=== PATIENT | female | born 1960 | race Caucasian/White ===

== ENCOUNTER → 2016-10-11 | Outpatient (CLI) | payer BC, OTHER ==
[~2016-10-11] MED LIST: CLX20 PO; LMC100 PO; MULT-506 PO; OXYC-57 PO; WARF2TAB PO
== END | disposition home or self-care (01) ==
LOC: C.RDSM 14:27
PROVIDERS: ATTEND Physical Medicine & Rehabilitation Sports Medicine
DX: Z47.1 Aftercare following joint replacement surgery (principal); Z96.652 Presence of left artificial knee joint

== ENCOUNTER → 2017-03-01 | Outpatient (CLI) | payer BC ==
[~2017-03-01] MED LIST changes: +CITA40TA12 PO; +MELO7.5T5 PO; -OXYC-57 PO; -WARF2TAB PO
--- NOTE | 2017-03-01 14:11 | DIAGNOSTIC IMAGING REPORT ---
RIGHT ANKLE MIN 3 VIEWS ROUTINE CLINICAL HISTORY: Right ankle pain following fall. COMPARISON: Right ankle radiographs December 16, 2011 and MRI of the right ankle December 07, 2011. FINDINGS: Alignment of the right ankle is anatomic. There is no acute fracture. A tiny ossicle along the fibular tip is old. Irregularity of the medial malleolus is old. There is mild posterior calcaneal spurring. There is mild ankle soft tissue swelling. IMPRESSION: No acute fracture or dislocation of the right ankle. Electronically signed by: Homero Wilson M.D. 03/01/2017 2:09 PM Dictated Date/Time: 03/01/2017 2:07 PM
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
== END | disposition home or self-care (01) ==
LOC: C.RAD1850 12:45
PROVIDERS: ATTEND Nurse Practitioner Family
DX: S99.911A Unspecified injury of right ankle, initial encounter (principal); M25.571 Pain in right ankle and joints of right foot; W19.XXXA Unspecified fall, initial encounter; R51 Headache

== ENCOUNTER → 2017-03-04 | Outpatient (CLI) | payer BC ==
--- NOTE | 2017-03-04 14:04 | DIAGNOSTIC IMAGING REPORT ---
BILATERAL KNEE RADIOGRAPHS CLINICAL HISTORY: Bilateral knee pain following fall. COMPARISON STUDY: Knee radiographs October 11, 2016. FINDINGS: Right knee: Alignment of the right knee is anatomic. There is no acute fracture. There is a small right knee joint effusion. There is chondrocalcinosis within the menisci. There is minimal lateral compartment joint space narrowing with tricompartmental osteophytosis. 9 mm calcific density projecting over the posterior aspect of the lateral joint space is unchanged. This could reflect a joint body. Left knee: Alignment of the left knee arthroplasty is anatomic. There is no periprosthetic fracture or lucency. There is no left knee joint effusion. IMPRESSION: Right knee: 1. No acute fracture. 2. Small right knee joint effusion. 3. Mild osteophytosis with chondrocalcinosis within the menisci. 4. No change in a 9 mm calcific density along the posterior aspect of the lateral joint space with could reflect a joint body. Left knee: Status post total left knee arthroplasty. No periprosthetic fracture. No left knee joint effusion. Electronically signed by: Homero Wilson M.D. 03/04/2017 2:02 PM Dictated Date/Time: 03/04/2017 1:54 PM
== END | disposition home or self-care (01) ==
LOC: C.RDSM 13:45
PROVIDERS: ATTEND Physician Assistant
DX: M25.561 Pain in right knee (principal); M25.562 Pain in left knee; Z96.653 Presence of artificial knee joint, bilateral; M25.461 Effusion, right knee

== ENCOUNTER → 2017-04-11 | Outpatient (CLI) | payer BC ==
[~2017-04-11] MED LIST changes: -CITA40TA12 PO; -MELO7.5T5 PO
== END | disposition home or self-care (01) ==
LOC: C.RDSM 15:28
PROVIDERS: ATTEND Physical Medicine & Rehabilitation Sports Medicine
DX: M16.12 Unilateral primary osteoarthritis, left hip (principal)

== ENCOUNTER 2017-09-13 04:49 | Inpatient (IN) | payer BC ==
[2017-08-17 09:24] VITALS: BMI 45.0
--- NOTE | 2017-08-17 09:53 | PAT Medication Instructions ---
Service Date Aug 17, 2017. Current Home Medication List Citalopram Hydrobromide (Celexa), 40 MG PO HS Lamotrigine (Lamotrigine), 200 MG PO HS Meloxicam (Mobic), 15 MG PO QAM Multivitamin (Multivitamin), 1 TAB PO QAM Medication Instructions For Your Scheduled Surgery - Check with surgeon for instructions: Meloxicam (Mobic), 15 MG PO QAM - Hold the following medications the morning of surgery: Multivitamin (Multivitamin), 1 TAB PO QAM - Take the following medications as scheduled the night before surgery: Lamotrigine (Lamotrigine), 200 MG PO HS Citalopram Hydrobromide (Celexa), 40 MG PO HS If you have any questions please call us at [phone] or [phone] or [phone]
[2017-08-17 10:29] LABS: BUN/CREATININE RATIO 10.8 (10-20); CALCIUM 9.3 mg/dl (8.5-10.1); CREATININE 1.2 mg/dl (0.60-1.20); POTASSIUM 4.1 mmol/L (3.5-5.1)
[2017-08-17 10:30] LABS: PARTIAL THROMBOPLASTIN RATIO 1.1; PROTHROMBIN TIME (PATIENT) 10.7 SECONDS (9.0-12.0)
[2017-08-17 10:31] LABS: C-REACTIVE PROTEIN 1.28 mg/dl (0-0.29)
--- NOTE | 2017-08-17 10:34 | DIAGNOSTIC IMAGING REPORT ---
CHEST 2 VIEWS ROUTINE HISTORY: Preop. COMPARISON: Chest 07/30/2016. FINDINGS: The lungs are clear. Cardiac silhouette is normal in size. No pleural effusions. No pneumothorax. IMPRESSION: No acute process. Electronically signed by: Tyrell Krueger M.D. 08/17/2017 10:32 AM Dictated Date/Time: 08/17/2017 10:31 AM
[2017-08-17 11:06] LABS: ESTIMATED AVERAGE GLUCOSE 103 mg/dl; HA1C FLAG Normal (Normal)
--- NOTE | 2017-09-12 07:02 | HISTORY & PHYSICAL EXAMINATION ---
DATE OF ADMISSION: 09/13/2017 CHIEF COMPLAINT: Left hip pain. HISTORY OF PRESENT ILLNESS: The patient is a 57-year-old white female who presents for surgical treatment of her left hip. She has a several year history of increasing left hip pain and discomfort that has gotten significantly worse over the past year. She has been seeing Dr. Krishnamurthy for this and he did the left knee replacement on her about a year or so ago. She has been treated with injections, which provided some temporary relief only. No long-term relief. She has had to use a cane to get around. She describes mostly groin pain. She is looking for surgical treatment. The patient has seen Dr. Krishnamurthy in the past. It is unclear to me why she is coming to our clinic now for this exactly. She does state that the more she walks the more she hurts. No numbness or radicular symptoms. PAST MEDICAL HISTORY: Significant for: 1. Depression/bipolar disorder. 2. Elevated cholesterol. 3. Obesity, BMI 45. PAST SURGICAL HISTORY: Include: 1. Left knee arthroscopy. 2. Right knee arthroscopy. 3. Left knee replacement done by Dr. Krishnamurthy in 2015. 4. Hysterectomy in 2007. ALLERGIES: None. CURRENT MEDICATIONS: 1. Lamictal 200 mg a day. 2. Celexa 40 mg a day. 3. Mobic 50 mg. 4. Buspirone 10 mg. 5. Tylenol. SOCIAL HISTORY: A 57-year-old white female. 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 Rare alcohol intake. She does not smoke. FAMILY HISTORY: Negative for heart disease, diabetes, or blood clots. REVIEW OF SYSTEMS: Negative for diabetes. Denies any chest pain, no shortness of breath. She does have depression/bipolar disorder on Lamictal. She has no seizure history. No blood clots. PHYSICAL EXAMINATION: GENERAL: Reveals a pleasant, middle-aged female. She looks to be in pretty good health. HEAD, EYES, EARS, NOSE, AND THROAT EXAMINATION: Benign. NECK: Supple. No lymphadenopathy. LUNGS: Clear to auscultation. HEART: Has a regular rate and rhythm. ABDOMEN: Soft, nontender, nondistended. EXTREMITY EXAMINATION: Grossly neurovascularly intact except as follows: Examination of left leg reveals the patient walks with an antalgic gait. Limps on the left side. Currently not using her cane. Leg lengths clinically appear pretty equal. She does have reproduction of her pain with hip motion and internal rotation. I can internally rotate to neutral at best. External rotation at 25 degrees. Negative straight leg raise. X-RAYS: X-rays of the left hip were reviewed. It shows advanced left hip DJD. She has got near complete loss of joint space. Fairly concentric disease pattern. Osteophytes off the femoral neck. Good bone density. ASSESSMENT: A 57-year-old white female 1 year out from a left knee replacement with Advanced left hip degenerative joint disease. She would like her left hip fixed. PLAN: We will take her to the operating room and do a left total hip replacement. The risks and benefits of this procedure were explained to the patient including but not limited to DVT, PE, , infection, neurological injury, vascular injury, bleeding problem, pain, limited range of motion, stiffness, failure to relieve her symptoms, incomplete relief of symptoms, need for further surgery in the future, fracture, leg length inequality, nerve palsy, need for revision surgery. The patient understands and desires to proceed. Informed consent was obtained.
[~2017-09-13] VITALS: Ht 170.2 cm; Wt 131.5 kg
[2017-09-13] VITALS (18 sets, daily range): BP systolic 113–142; BP diastolic 71–84; PULSE 84–120; TEMP 36.4–38.8; O2SAT 93–98; Ht 170.2 cm; Wt 131.5 kg
[~2017-09-13 04:49] MED LIST changes: +CITA40TA12 PO; -CLX20 PO; +MELO7.5T5 PO
[2017-09-13] MEDS ORDERED: SCOPOLAMINE 1.5 MG TDSY TD SCH (06:00)
[2017-09-13] MEDS ORDERED: LACTATED RINGER'S 1000ML IV SCH (06:00)
[2017-09-13] MEDS ORDERED: TRANEXAMIC ACID INJ 1,000 MG in SYRINGE 0 ML IV SCH (06:00)
[2017-09-13] MEDS ORDERED: LACTATED RINGER'S 1000ML 500 ML IV ONE (06:00)
[2017-09-13] MEDS ORDERED: LACTATED RINGER'S 1000ML 1,000 ML IV SCH (06:00)
[2017-09-13] MEDS ORDERED: GABAPENTIN 300 MG CAP PO SCH (06:00)
[2017-09-13] MEDS ORDERED: ACETAMINOPHEN 500 MG TAB PO SCH (06:00)
[2017-09-13] MEDS ORDERED: FAMOTIDINE 20 MG TAB PO SCH (06:00)
[2017-09-13] MEDS ORDERED: METOCLOPRAMIDE HCL 10 MG TAB PO SCH (06:00)
[2017-09-13] MEDS ORDERED: CEFAZOLIN 3000MG IV PUSH 15 ML IV SCH (06:00)
[2017-09-13] MEDS ORDERED: BACITRACIN 50000 UNIT VIAL ONE (06:28)
[2017-09-13] MEDS ORDERED: BUPIVACAINE/EPINEPHRINE 0.5% MPF 1:200,000 30 ML VIAL ONE (06:28)
[2017-09-13] MEDS ORDERED: BUPIVACAINE 0.5 % 5 MG/1 ML PF 10ML VIAL ONE (06:30)
[2017-09-13] MEDS ORDERED: MIDAZOLAM HCL 1 MG/ML 2ML VIAL ONE (06:40)
[2017-09-13] MEDS ORDERED: MORPHINE SULFATE PF 2MG/2ML SYR ONE (06:40)
--- NOTE | 2017-09-13 06:50 | History & Physical Bridge Note ---
H&P Re-Evaluation Bridge Note: I have examined the patient, reviewed the History & Physical and in the interval since the performance of the History & Physical I have noted the following changes of clinical significance: No changes noted
[2017-09-13] MEDS ORDERED: DiphenhydrAMINE HCL 50 MG/ML VIAL ONE (07:36)
[2017-09-13] MEDS ORDERED: ONDANSETRON INJ 2 MG/ML 2 ML VIAL ONE (07:36)
[2017-09-13] MEDS ORDERED: EpHEDrine SULFATE 50MG/5ML SYR ONE (07:36)
[2017-09-13] MEDS ORDERED: PROPOFOL IV EMULSION 10 MG/ML 20 ML VIAL IV ONE (07:36)
[2017-09-13] MEDS ORDERED: PHENYLEPHRINE 100MCG/ML 5ML SYR ONE (08:32)
--- NOTE | 2017-09-13 08:49 | [facility] Post Operative Brief Note ---
Immediate Operative Summary Operative Date Sep 13, 2017. Pre-Operative Diagnosis Advanced Left Hip Degenerative Joint Disease Post-Operative Diagnosis Advanced Left Hip Degenerative Joint Disease Procedure(s) Performed Left Total Hip Arthroplasty--Uncemented Surgeon Dr. Brar Mechanical Assembly Technician Surgeon(s) SABIHA Olivares Estimated Blood Loss 400 ml Findings Left Hip DJD Fluids (cc crystalloids) 1400 cc Specimens A. Left Femoral Head Drains None Anesthesia Spinal Complication(s) None Disposition Recovery Room / PACU
[2017-09-13] MEDS ORDERED: MAGNESIUM HYDROXIDE SUSP 30 ML UDC PO PRN (09:00)
[2017-09-13] MEDS ORDERED: BISACODYL 10 MG SUPP PR PRN (09:00)
[2017-09-13] MEDS ORDERED: SILVER SULFADIAZINE 1% CR 50 GM JAR EXT PRN (09:00)
[2017-09-13] MEDS ORDERED: MULTIVITAMIN TAB PO SCH (09:00)
[2017-09-13] MEDS ORDERED: ALUMINUM/MAGNESIUM/SIMETH (MAALOX MAX) 30 ML UDC PO PRN (09:00)
--- NOTE | 2017-09-13 09:16 | OPERATIVE REPORT ---
DATE OF OPERATION: 09/13/2017 SURGEON: Dr. Macho Brar. FURNACE WORKER: SABIHA Ac PREOPERATIVE DIAGNOSIS: Left hip degenerative joint disease. POSTOPERATIVE DIAGNOSIS: Same. PROCEDURE PERFORMED: Left uncemented ceramic on highly cross-linked polyethylene total hip arthroplasty. COMPLICATIONS: None. ESTIMATED BLOOD LOSS: 400 mL. FLUID REPLACEMENT: 1400 mL crystalloid fluid replacement. ANESTHESIA: Spinal. DRAINS: None. SPECIMENS: Left femoral head sent for pathology. OPERATIVE INDICATIONS: The patient is a 57-year-old female who has had a several year history of increasing left hip pain and discomfort. She underwent a left knee replacement about a year ago and has done pretty well from that, but has continued to be bothered and limited by left hip pain. X-rays reveal advanced left hip arthritis. She elected to proceed with operative treatment. OPERATIVE FINDINGS: Operative findings revealed advanced left hip DJD. She had grade 4 [id number] disease of the femoral head and acetabulum. Not a lot of osteophytes. Moderate size joint effusion. Minimal synovitis. OPERATIVE IMPLANTS: Operative implants consisted of: 1. Biomet G7 size 52-mm acetabular shell. 2. An apex hole eliminator. 3. A 6.5 cancellous acetabular screws, 1 at 35 mm length and 1 at 25 mm in length. 4. Highly cross-linked polyethylene liner with a 52 mm outer diameter and 32 mm inner diameter. 5. A DePuy size 13.5 small stature AML femoral stem. 6. A +5/32 mm ceramic articular ball. OPERATIVE PROCEDURE: The patient was taken to the operating room, identified and placed on the operating table in the supine position. All contact areas were appropriately padded. IV antibiotics were provided by anesthesia team. A spinal anesthetic had been implemented in the holding area. Grubbs catheter was placed in sterile fashion. The patient was then placed in the right lateral decubitus position. An axillary roll was placed. Stulberg hip positioner was used for positioning. Left hip and leg were then prepped and draped in the usual sterile fashion. A posterolateral approach to the left hip was then performed through a curvilinear incision centered over the greater trochanter. Sharp dissection was carried out through the subcutaneous tissues down to the level of the IT band and gluteal fascia. The IT band and gluteal fascia was incised longitudinally in line with skin incision. The underlying greater trochanteric bursa was excised. The piriformis and external rotators were tagged and taken off the posterior aspect of the hip. Great care was taken throughout the procedure to protect the sciatic nerve at all times. Posterior capsulotomy was then performed leaving a large flap for later repair. It was centrally rotated and dislocated. Femoral neck osteotomy cut was made with the final cut 15 mm above the lesser trochanter. Femoral head was removed and sent for pathology. The femur was retracted anteriorly. Attention was then drawn to the acetabulum. The acetabular labrum was excised. The pulvinar fat was excised. Sequential reaming of the acetabulum was then performed beginning with a size 43 and progressing up to a 51. I did ream just the entrance of the acetabulum with a 52 as we were having trouble getting a cup in. A 52-mm G7 acetabular shell was then placed in about 40 degrees of lateral opening and 20 degrees of anteversion. It was fixed with two 6.5 cancellous acetabular screws. A trial liner was placed. Attention was then drawn to the femur. The proximal femur was entered with a cookie cutter followed by canal finder and lateralizing reamer. Sequential reaming of the femur was then performed beginning with a size 9 and progressing up to a 13. We got excellent chatter at 13. I broached beginning with a size 10.5 small broach and progressing up to 13.5 small. I did not feel I could get the large broach in. We then trialed the hip and the +5 articular ball recreated the leg lengths to be equal. The hip was stable in full extension and external rotation and in flexion and internal rotation to 50+ degrees. We elected to use these implants. The soft tissue tension was just a little bit lax, but I felt that the leg lengths were equal. All trial implants were removed. An apex hole eliminator was placed. A highly cross-linked polyethylene liner was placed. A 13.5 small stature AML femoral stem was placed. I did ream partway down the canal with a 13.5 reamer as it was extremely tight to start out. A +5/32 mm ceramic articular ball was placed. Hip was located and once again found to be stable. The wound was irrigated with copious amounts of pulsatile lavage solution. I did inject locally with 60 mL of 0.5% Marcaine with epinephrine. The posterior capsule and external rotators were repaired through drill holes in the posterior trochanter with #2 Ti-Cron suture. The IT band and gluteal fascia were then closed with #1 PDS suture in running fashion. The subcutaneous tissues were then closed in 2 layers, the deep layer #2 Vicryl suture and the subcutaneous tissues with 2-0 Dexon suture in a buried interrupted fashion. Skin was closed skin kaitlin. Leg was then cleaned and dried and a sterile dressing of Xeroform, 4 x 4's, ABD pad and foam tape was applied. The patient was transferred to the recovery room in stable condition. The patient tolerated the procedure well with no complications. All needle and sponge counts were correct at the end of the operation. I attest to the content of the Intraoperative Record and any orders documented therein. Any exception s are noted below.
[2017-09-13] MEDS ORDERED: NALOXONE HCL INJ 0.08 MG in SYRINGE 1.8 ML IV PRN (09:36)
[2017-09-13] MEDS ORDERED: NALOXONE HCL INJ 1 MG in SODIUM CHLORIDE 0.9% 1000ML 1,000 ML IV PRN (09:36)
[2017-09-13] MEDS ORDERED: SODIUM CHLORIDE 0.9% 1000ML 1,000 ML IV PRN (09:36)
[2017-09-13] MEDS ORDERED: LACTATED RINGER'S 1000ML 500 ML IV PRN (09:36)
--- NOTE | 2017-09-13 09:38 | DIAGNOSTIC IMAGING REPORT ---
AP PELVIS, CROSSTABLE LATERAL LEFT HIP History: Left total hip arthroplasty. Degenerative arthritis. Postop. FINDINGS: The patient is status post a left total hip arthroplasty. The hardware is intact. No fracture or dislocation. Skin kaitlin are in place. IMPRESSION: Left total hip arthroplasty. No evidence for hardware complication. Electronically signed by: Tyrell Krueger M.D. 09/13/2017 9:37 AM Dictated Date/Time: 09/13/2017 9:35 AM
[2017-09-13] MEDS ORDERED: MEPERIDINE HCL 25 MG/ML CARP IV PRN (09:45)
[2017-09-13] MEDS ORDERED: NO NARCOTICS OR SEDATIVES SCH (09:45)
[2017-09-13] MEDS ORDERED: MoRPHine SULFATE 2 MG/ML CARP IV PRN (09:45)
[2017-09-13] MEDS ORDERED: DiphenhydrAMINE HCL 50 MG/ML VIAL IV PRN (09:45)
[2017-09-13] MEDS ORDERED: ATROPINE SULFATE 0.1 MG/ML 5ML SYR IV PRN (09:45)
[2017-09-13] MEDS ORDERED: NALOXONE HCL 0.4 MG/1 ML VIAL/CARP IV PRN (09:45)
[2017-09-13] MEDS ORDERED: ONDANSETRON INJ 2 MG/ML 2 ML VIAL IV PRN (09:45)
[2017-09-13] MEDS ORDERED: NALBUPHINE HCL INJ 10 MG/ML AMP IV PRN (09:45)
[2017-09-13] MEDS ORDERED: MoRPHine SULFATE PF 1 MG/ML 10 ML AMP/VIAL EPI PRN (09:45)
[2017-09-13] MEDS ORDERED: EpHEDrine SULFATE INJ 50 MG/ML AMP IV PRN ×2 (09:45)
[2017-09-13] MEDS ORDERED: KETOROLAC TROMETHAMINE 30 MG/ML VIAL IV. PRN (09:45)
[2017-09-13] MEDS ORDERED: PROMETHAZINE HCL INJ 6.25 MG in SODIUM CHLORIDE 0.9% 50ML 50 ML IV PRN (09:45)
--- NOTE | 2017-09-13 10:06 | Anesthesiology Progress Note ---
Anesthesia Post Op Note Date & Time Sep 13, 2017 at 10:06 Vital Signs Pain Intensity: 0 Vital Signs Past 12 Hours Date Time Temp Pulse Resp B/P (MAP) Pulse Ox O2 Delivery O2 Flow Rate FiO2 09/13/17 09:30 90 16 117/59 97 Nasal Cannula 3 09/13/17 09:15 36.9 88 16 109/62 98 Nasal Cannula 3 09/13/17 09:05 89 16 111/67 98 Nasal Cannula 3 09/13/17 08:55 88 14 118/75 100 Oxymask 3 09/13/17 08:49 36.9 90 16 126/54 100 Oxymask 5 09/13/17 05:38 37.1 84 20 127/76 95 Room Air Notes Mental Status: alert / awake / arousable, participated in evaluation Pt Amnestic to Procedure: Yes Nausea / Vomiting: adequately controlled Pain: adequately controlled Airway Patency, RR, SpO2: stable & adequate BP & HR: stable & adequate Hydration State: stable & adequate Neuraxial Anesthesia: was administered, sensory block is resolving Anesthetic Complications: no major complications apparent
[2017-09-13] MEDS: D5W AND 1/2NSS + 20MEQ KCL 1,000 ML IV SCH ×3 (12:09→23:53)
[2017-09-13] MEDS: PANTOprazole SOD 40 MG TAB PO SCH (13:00)
[2017-09-13] MEDS: FERROUS GLUCONATE 324 MG TAB PO SCH ×2 (13:01→17:37)
[2017-09-13] MEDS: MULTIVITAMIN TAB PO SCH (13:01)
[2017-09-13] MEDS: DOCUSATE SODIUM 100 MG CAP PO SCH ×2 (13:01→21:42)
--- NOTE | 2017-09-13 13:35 | PROGRESS NOTE ---
DATE: 09/13/2017 DATE: 09/13/2017 SUBJECTIVE: A 57-year-old white female postop from a left hip placement. She is doing well. Not having any pain yet. No chest pain or shortness of breath. Not feeling dizzy or lightheaded. OBJECTIVE: VITAL SIGNS: Temperature 36.8. Vital signs stable. PHYSICAL EXAMINATION: GENERAL: Reveals a healthy, pleasant, middle-aged female. I had to wake her when I went into the room this afternoon. LUNGS: Clear to auscultation. HEART: Regular rate and rhythm. ABDOMEN: Soft, nontender, nondistended. EXTREMITY EXAMINATION: Grossly neurovascularly intact except as follows: Examination of the left lower extremity reveals the leg to be well aligned. Let lengths are equal. Hip is located. Dressing is clean, dry and intact. She can dorsiflex and plantarflex her foot appropriately. She is neurologically intact. X-RAYS: X-rays of the left hip from recovery room were reviewed. It shows a left uncemented total hip arthroplasty. Components look to be in good position. No signs of problems. ASSESSMENT: A 57-year-old white female postop from a left total hip replacement, doing well. Her pain is controlled. Hip is located. She is neurologically intact. PLAN: 1. DVT prophylaxis including thigh-high TEDs, SCDs, and aspirin twice a day. 2. PT and OT. Weight bear as tolerated. Left total hip protocol. 3. Pain control. Doing well with current pain regimen. 4. IV antibiotics x24 hours. 5. Disposition: She is planning to be discharged to home with some home health once adequately recovered.
[2017-09-13] MEDS: ACETAMINOPHEN 500 MG TAB PO SCH ×2 (14:04→21:42)
[2017-09-13] MEDS ORDERED: TRANEXAMIC ACID INJ 1,000 MG in SODIUM CHLORIDE 0.9% 100ML 100 ML IV ONE (15:00)
[2017-09-13] MEDS: CEFAZOLIN IV 2,000 MG in SYRINGE 0 ML IV SCH ×2 (16:24→23:52)
[2017-09-13] MEDS: CHECK SCOPOLAMINE PATCH PLACEMENT SCH ×2 (16:25→23:53)
--- NOTE | 2017-09-13 19:52 | Medical Consult ---
Consultation Date of Consultation: Sep 13, 2017. Attending Physician: Macho Brar M.D. History of Present Illness This is a 57 y/o F who underwent left hip replacement this morning for advanced degenerative disease. She was transferred to the floor this morning. She has been tachycardic in the 120's intermittently since the morning and having some diaphoresis. Medicine was consulted this evening for further eval. She denies any chest pain, shortness of breath, calf tenderness. She does admit to sweating Denies any significant cardiac disease. Past Medical/Surgical History Chronic Pain Social History Smoking Status: Never Smoker Drug Use: none Occupation Status: employed Allergies Coded Allergies: Amoxicillin (Verified Allergy, Intermediate, HYPERACTIVITY/DISORIENTATION , 09/13/17) Cat Dander (Verified Allergy, Unknown, hay fever, 09/13/17) Current Inpatient Medications Current Inpatient Medications Medications (Trade) Dose Ordered Sig/Cami Route Start Time Stop Time Status Last Admin Dose Admin Miscellaneous (Remove Transderm-Scop Patch) 1 ea Q72H N/A 09/16/17 06:00 09/16/17 06:01 Miscellaneous Information (Check Scopolamine Patch Placement) 1 ea QS N/A 09/13/17 16:00 09/16/17 05:59 09/13/17 16:25 1 EA Potassium Chloride/Dextrose/ Sod Cl 1,000 ml @ 150 mls/hr Q6H40M IV 09/13/17 10:30 09/14/17 08:48 09/13/17 12:09 150 MLS/HR Ketorolac Tromethamine (Toradol Inj) 30 mg Q6H IV. 09/14/17 08:00 09/16/17 07:59 Oxycodone HCl (Roxicodone Immediate Rel Tab) 1 TABLET FOR PAIN RATING... Q4H PRN PO 09/14/17 07:01 09/28/17 07:00 Acetaminophen (Tylenol Tab) 1,000 mg Q8H PO 09/13/17 14:00 10/13/17 08:59 09/13/17 14:04 1,000 MG Magnesium Hydroxide (Milk Of Magnesia Susp) 30 ml Q6H PRN PO 09/13/17 09:00 10/13/17 08:59 Bisacodyl (Dulcolax Supp) 10 mg DAILY PRN OK 09/13/17 09:00 10/13/17 08:59 Senna (Senokot Tab) 17.2 mg HS PO 09/13/17 21:00 10/13/17 20:59 Docusate Sodium (coLACE CAP) 100 mg BID PO 09/13/17 09:00 10/13/17 08:59 09/13/17 13:01 100 MG Diphenhydramine HCl (Benadryl Cap) 25 mg Q8H PRN PO 09/14/17 07:01 10/14/17 07:00 Diphenhydramine HCl (Benadryl Inj) 25 mg Q8H PRN IV 09/14/17 07:01 10/14/17 07:00 Al Hydrox/Mg Hydrox/Simethicone (Maalox Max Susp) 15 ml Q4H PRN PO 09/13/17 09:00 10/13/17 08:59 Zolpidem Tartrate (Ambien Tab) 5 mg HSZ PRN PO 09/14/17 07:01 10/14/17 07:00 Multivitamins (Multivitamin Tab) 1 tab QAM PO 09/13/17 09:00 10/13/17 08:59 09/13/17 13:01 1 TAB Ondansetron HCl (Zofran Inj) 4 mg Q6H PRN IV 09/14/17 07:01 10/14/17 07:00 Metoclopramide HCl (Reglan Inj) 10 mg Q6H PRN IV 09/14/17 07:01 10/14/17 07:00 Ferrous Gluconate (Ferrous Gluconate Tab) 324 mg TIDM PO 09/13/17 12:30 10/13/17 12:29 09/13/17 17:37 324 MG Pantoprazole Sodium (Protonix Tab) 40 mg QAM PO 09/13/17 09:00 10/13/17 08:59 09/13/17 13:00 40 MG Silver Sulfadiazine (Silvadene 1% Crm 50GM Jar) 1 appln BID PRN EXT 09/13/17 09:00 10/13/17 08:59 Aspirin (Ecotrin Tab) 325 mg BID PO 09/13/17 21:00 10/13/17 20:59 Cefazolin Sodium 2000 mg/Syringe 10 ml @ 2.5 mls/min Q8H IV 09/13/17 16:00 09/14/17 00:03 09/13/17 16:24 2.5 MLS/MIN Tapentadol (Nucynta Er Tab) 50 mg BID PO 09/14/17 09:00 10/14/17 08:59 Citalopram Hydrobromide (celeXA TAB) 40 mg HS PO 09/13/17 21:00 10/13/17 20:59 Lamotrigine (Lamictal Tab) 200 mg HS PO 09/13/17 21:00 10/13/17 20:59 Hydromorphone HCl (Dilaudid Inj) 0.5 mg Q1H PRN IV 09/14/17 07:01 09/28/17 07:00 Naloxone HCl (Narcan Inj) 0.1 mg UD PRN IV 09/13/17 09:45 09/14/17 07:00 Diphenhydramine HCl (Benadryl Inj) 25 mg Q6H PRN IV 09/13/17 09:45 09/14/17 07:00 Nalbuphine HCl (Nubain Inj) 5 mg Q10M PRN IV 09/13/17 09:45 09/14/17 07:00 Naloxone HCl 1 mg/ Sodium Chloride 1,002.5 ml @ 50 mls/hr Q20H3M PRN IV 09/13/17 09:36 09/14/17 07:00 Ondansetron HCl (Zofran Inj) 4 mg Q6H PRN IV 09/13/17 09:45 09/14/17 07:00 Promethazine HCl 6.25 mg/Sodium Chloride 50.25 ml @ 200 mls/hr Q6H PRN IV 09/13/17 09:45 09/14/17 07:00 Ketorolac Tromethamine (Toradol Inj) 30 mg Q6H PRN IV. 09/13/17 09:45 09/14/17 07:00 Meperidine HCl (Demerol Inj) 25 mg Q15M PRN IV 09/13/17 09:45 09/14/17 07:00 Miscellaneous Information (Dc Intraspinal Morphine) 1 ea TODAY@0700 N/A 09/14/17 07:00 09/14/17 07:01 Miscellaneous Information (No Narcotics Or Sedatives) 1 ea UD N/A 09/13/17 09:45 09/14/17 07:00 Naloxone HCl 0.08 mg/Syringe 2 ml @ 1 mls/min Q2M PRN IV 09/13/17 09:36 09/14/17 07:00 Morphine Sulfate (MoRPHine SULFATE INJ) 2 mg Q2H PRN IV 09/13/17 09:45 09/27/17 07:00 Lactated Ringer's 500 ml @ 999 mls/hr Q31M PRN IV 09/13/17 09:36 09/14/17 07:00 Ephedrine Sulfate (EpHEDrine SULFATE INJ) 10 mg Q5M PRN IV 09/13/17 09:45 09/14/17 07:00 Morphine Sulfate (Duramorph Pf Inj) 0.2 mg TODAY PRN EPI 09/13/17 09:45 09/14/17 07:00 Sodium Chloride 1,000 ml @ 15 mls/hr Q24H PRN IV 09/13/17 09:36 09/14/17 07:00 Review of Systems Constitutional: + sweats, No fever, No chills Respiratory: No cough, No sputum, No wheezing, No shortness of breath, No dyspnea on exertion, No dyspnea at rest Cardiovascular: No chest pain Abdomen: No pain, No nausea, No vomiting Musculoskeletal: + joint pain, + swelling, No calf pain Genitourinary - Female: No dysuria, No urinary frequency Physical Exam Date Time Temp Pulse Resp B/P (MAP) Pulse Ox O2 Delivery O2 Flow Rate FiO2 09/13/17 19:10 16 97 09/13/17 17:59 16 97 09/13/17 16:41 16 95 09/13/17 15:43 16 94 09/13/17 15:30 Nasal Cannula 2.0 09/13/17 15:20 36.9 120 18 113/82 (92) 96 Nasal Cannula 2.0 09/13/17 12:45 16 96 09/13/17 12:34 36.8 106 19 119/78 (92) 96 Nasal Cannula 2.0 09/13/17 11:45 16 98 09/13/17 11:39 36.4 102 18 137/77 (97) 98 Nasal Cannula 2.0 09/13/17 10:46 37.0 96 18 142/84 (103) 93 Nasal Cannula 2.0 09/13/17 10:45 16 96 09/13/17 10:12 36.9 95 19 117/71 (86) 97 Room Air 09/13/17 09:45 Nasal Cannula 2.0 09/13/17 09:45 Nasal Cannula 2.0 09/13/17 09:45 36.9 94 16 125/71 (89) 94 Nasal Cannula 2.0 09/13/17 09:45 16 94 09/13/17 09:30 90 16 117/59 97 Nasal Cannula 3 09/13/17 09:15 36.9 88 16 109/62 98 Nasal Cannula 3 09/13/17 09:05 89 16 111/67 98 Nasal Cannula 3 09/13/17 08:55 88 14 118/75 100 Oxymask 3 09/13/17 08:49 36.9 90 16 126/54 100 Oxymask 5 09/13/17 05:38 37.1 84 20 127/76 95 Room Air General Appearance: no apparent distress Eyes: PERRL, EOMI Respiratory/Chest: lungs clear, normal breath sounds, no respiratory distress, no accessory muscle use Cardiovascular: no murmur, + tachycardia Abdomen/GI: normal bowel sounds, non tender, soft Extremities/Musculoskelatal: no calf tenderness, + pedal edema Neurologic/Psych: no motor/sensory deficits, alert, normal mood/affect, oriented x 3 Laboratory Results Last 24 Hours Test 09/13/17 19:35 Assessment & Plan Post Op Tachycardia/diaphoresis- day 0 denied chest pain/shortness of breath Receiving IV fluids Bolus NSS 500 ml, Normotensive D-Dimer elevated (likely from ortho surgery) - CTA negative for PE EKG with Sinus tach, t wave changes in the lateral leads, negative troponin Denies frequent alcohol use - last beer last week. low risk for alc. withdrawal Received 12.5 PO metoprolol. Later received call about temp of 38.8 Ordered blood cultures Patient on Cefazolin Xray and U/A normal. Resident Physician Supervision Note: Pt examined independently. I discussed the case with the resident and agree with the findings and plan as documented in the note. Any exceptions or clarifications are listed here: 57 y/o F post TKA - pt has exhibited tachycardia post-op - denies SOB or CP. She received a single dose of metoprolol prior to evaluation. Initial HR was approx 130 - 105 at time of evaluation. No obvious etiology for tachycardia is present - A CTA ruled out a PE. She has had a fever post-op without apparent focus. OE AAO x 3 S1,2 tachy/reg CTAB NT, ND NO CCE P: Pt will be monitored overnight and provided with IVF. If there is no short- term improvement we may need to consult cardiology. Would caution against B taylor use as she had displayed a fever in which case tachycardia may be compensatory. Post anesthesia effect may also contribute. Her pain is well controlled so unlikely to contribute to her elevated HR. Reg her fever - she is receiving antibiotics - would obtain cultures if recurs. Documented By: Lalo Gallardo
[2017-09-13 20:22] LABS: BASO % 0.3 %; BASO ABS # 0.04 K/uL (0-0.2); COMPLETE YES; EOS % 0.9 %; HEMATOCRIT 35.6 % (37-47); IG% 0.3 %; LYMPH % 14.5 %; LYMPH ABS # 2.15 K/uL (1.2-3.4); MEAN CELL VOLUME 91.5 fL (80-100); MEAN CORPUSCULAR HEMOGLOBIN 30.6 pg (25-34); MEAN CORPUSCULAR HGB CONC 33.4 g/dl (32-36); MEAN PLATELET VOLUME 9.5 fL (7.4-10.4); MONO % 6.1 %; NEUT % 77.9 %; PLATELET COUNT 302 K/uL (130-400); RED BLOOD COUNT 3.89 M/uL (4.2-5.4); WHITE BLOOD COUNT 14.81 K/uL (4.8-10.8)
[2017-09-13 20:37] LABS: BLOOD UREA NITROGEN 13 mg/dl (7-18); BUN/CREATININE RATIO 9.9 (10-20); CALCIUM 8.5 mg/dl (8.5-10.1); CARBON DIOXIDE 28 mmol/L (21-32); CHLORIDE 102 mmol/L (98-107); CREATININE 1.28 mg/dl (0.60-1.20); GLUCOSE 142 mg/dl (70-99); POTASSIUM 4.5 mmol/L (3.5-5.1); SODIUM 136 mmol/L (136-145)
[2017-09-13] MEDS ORDERED: METOPROLOL TARTRATE 1 MG/ML VIAL IV STA (21:20)
--- NOTE | 2017-09-13 21:25 | DIAGNOSTIC IMAGING REPORT ---
BILATERAL LOWER EXTREMITY VENOUS DOPPLER HISTORY: Acute tachycardia with concern for deep venous thrombosis in a postoperative patient post op tachycardia, r/o dvt. [Left hip degenerative joint disease. COMPARISON STUDY: None. FINDINGS: There is normal compressibility, flow, and augmentation within the bilateral lower extremity deep venous systems. IMPRESSION: No sonographic evidence of deep venous thrombosis within the right or left lower extremity. Electronically signed by: Maicol Grace M.D. 09/13/2017 9:23 PM Dictated Date/Time: 09/13/2017 9:22 PM
--- NOTE | 2017-09-13 21:30 | DIAGNOSTIC IMAGING REPORT ---
CHEST ONE VIEW PORTABLE HISTORY: 57 years-old Female tachycardia, post op acute tachycardia in a postoperative patient. COMPARISON: Chest radiographs 08/17/2017 TECHNIQUE: Portable AP view of the chest FINDINGS: Cardiomediastinal and hilar silhouettes are within normal limits. No pneumothorax, pleural effusion, focal airspace consolidation or overt pulmonary edema. The bones of the chest appear grossly intact. Mild degenerative changes of the shoulders. IMPRESSION: No acute process. The above report was generated using voice recognition software. It may contain grammatical, syntax or spelling errors. Electronically signed by: Maicol Grace M.D. 09/13/2017 9:28 PM Dictated Date/Time: 09/13/2017 9:27 PM
[2017-09-13] MEDS: ASPIRIN 325 MG ECTAB PO SCH (21:42)
[2017-09-13] MEDS: SENNA 8.6 MG TAB PO SCH (21:43)
[2017-09-13] MEDS: CITALOPRAM 40 MG TAB PO SCH (21:43)
[2017-09-13] MEDS ORDERED: METOPROLOL TARTRATE 25 MG TAB PO STA (21:45)
[2017-09-13] MEDS ORDERED: OPTIRAY 320 IV PRN (22:45)
--- NOTE | 2017-09-13 22:51 | DIAGNOSTIC IMAGING REPORT ---
(CHEST FOR PE) ANGIO WITH CT DOSE: 677.85 mGy.cm HISTORY: 57 years-old Female acute tachycardia with concern for pulmonary embolus. TECHNIQUE: Multiple CTA images of the chest were obtained after the intravenous administration of 93 ml Optiray 320. Coronal and sagittal MIPS were obtained from the axial data set and were submitted for review. A dose lowering technique was utilized adhering to the principles of ALARA. COMPARISON: Duplex venous Doppler study of same day, chest radiograph of same day. FINDINGS: CTA: Heart is normal in size without pericardial effusion. Thoracic aorta is normal in both course and caliber without aneurysm or dissection. Bovine aortic arch. Imaged great vessels are patent. Mild atherosclerosis. There is suboptimal evaluation of the pulmonary arterial tree secondary to minimal respiratory motion and contrast bolus timing. The lobar, segmental and subsegmental branches are not well evaluated. No central pulmonary embolus identified. CT CHEST: Heterogeneous thyroid without dominant nodule identified. No pathologic adenopathy by CT size criteria. There is no pneumothorax or pleural effusion identified. Minimal subsegmental bibasilar atelectasis. 3 mm pleural-based pulmonary nodule left upper lobe, image 211 series 4 is likely benign. The central airways are patent. No lobar airspace consolidation to suggest pneumonia. Diffuse fatty infiltration of the liver. Layering gallstones are seen within the gallbladder lumen. No CT evidence of acute cholecystitis. No acute amount of the imaged upper abdomen. Small sliding-type hiatal hernia with fluid noted within the mid and distal portions of the esophageal lumen. Soft tissues are unremarkable. Bones appear intact. Multilevel endplate spurring of the spine. IMPRESSION: 1. Limited evaluation of the pulmonary arterial tree as above. No central pulmonary embolus identified. 2. No acute intrathoracic abnormality. No lobar airspace consolidation to suggest pneumonia. 3. Hepatic steatosis. 4. Cholelithiasis. 5. Small sliding-type hiatal hernia. The above report was generated using voice recognition software. It may contain grammatical, syntax or spelling errors. Electronically signed by: Maicol Grace M.D. 09/13/2017 10:49 PM Dictated Date/Time: 09/13/2017 10:42 PM
[2017-09-13 23:03] LABS: URINE APPEARANCE TURBID (CLEAR); URINE BILIRUBIN NEG (NEG); URINE COLOR YELLOW; URINE NITRITE NEG (NEG); URINE SPECIFIC GRAVITY > 1.045 (1.000-1.030); UROBILINOGEN NEG (NEG)
[2017-09-13 23:12] LABS: MANUAL MICROSCOPIC REQUIRED? NO; REVIEW REQ? NO
[2017-09-13] MEDS ORDERED: NURSING VERBAL MED ORDER ONE (23:30)
[2017-09-13] MEDS ORDERED: SODIUM CHLORIDE 0.9% 500ML 500 ML IV SCH (23:45)
[2017-09-14] VITALS (16 sets, daily range): BP systolic 102–161; BP diastolic 67–85; PULSE 85–104; TEMP 36.4–38.1; O2SAT 84–98
[2017-09-14] MEDS ORDERED: NURSING VERBAL MED ORDER SCH (04:45)
[2017-09-14] MEDS ORDERED: ACETAMINOPHEN 325 MG TAB PO ONE (05:00)
[2017-09-14] MEDS: D5W AND 1/2NSS + 20MEQ KCL 1,000 ML IV SCH (05:12)
[2017-09-14] MEDS ORDERED: NURSING VERBAL MED ORDER ONE (07:00)
[2017-09-14] MEDS ORDERED: DC INTRASPINAL MORPHINE SCH (07:00)
[2017-09-14] MEDS ORDERED: OXYCODONE HCL IR 5 MG TAB (IMMEDIATE RELEASE) PO PRN (07:01)
[2017-09-14] MEDS ORDERED: ONDANSETRON INJ 2 MG/ML 2 ML VIAL IV PRN (07:01)
[2017-09-14] MEDS ORDERED: DiphenhydrAMINE HCL 50 MG/ML VIAL IV PRN (07:01)
[2017-09-14] MEDS ORDERED: METOCLOPRAMIDE HCL INJ 5 MG/ML 2 ML VIAL IV PRN (07:01)
[2017-09-14] MEDS ORDERED: ZOLPIDEM TARTRATE 5 MG TAB PO PRN (07:01)
[2017-09-14] MEDS ORDERED: HYDROmorphone INJ 0.5 MG/0.5 ML SYR IV PRN (07:01)
[2017-09-14 07:30] LABS: BASO % 0.1 %; BASO ABS # 0.02 K/uL (0-0.2); COMPLETE YES; EOS % 0.6 %; HEMATOCRIT 31.2 % (37-47); IG% 0.3 %; LYMPH % 11.2 %; LYMPH ABS # 1.56 K/uL (1.2-3.4); MEAN CELL VOLUME 89.7 fL (80-100); MEAN CORPUSCULAR HEMOGLOBIN 30.7 pg (25-34); MEAN CORPUSCULAR HGB CONC 34.3 g/dl (32-36); MEAN PLATELET VOLUME 9.5 fL (7.4-10.4); MONO % 7.6 %; NEUT % 80.2 %; PLATELET COUNT 208 K/uL (130-400); RED BLOOD COUNT 3.48 M/uL (4.2-5.4); WHITE BLOOD COUNT 13.99 K/uL (4.8-10.8)
[2017-09-14] MEDS: KETOROLAC TROMETHAMINE 30 MG/ML VIAL IV. SCH ×3 (07:45→19:49)
[2017-09-14] MEDS: CHECK SCOPOLAMINE PATCH PLACEMENT SCH ×3 (07:46→23:59)
[2017-09-14 08:10] LABS: BUN/CREATININE RATIO 10.5 (10-20); CALCIUM 8.1 mg/dl (8.5-10.1); CREATININE 0.95 mg/dl (0.60-1.20); POTASSIUM 3.7 mmol/L (3.5-5.1)
[2017-09-14] MEDS: PANTOprazole SOD 40 MG TAB PO SCH (08:48)
[2017-09-14] MEDS: TAPENTADOL ER 50 MG TABCR PO SCH ×2 (08:48→20:47)
[2017-09-14] MEDS: DOCUSATE SODIUM 100 MG CAP PO SCH ×2 (08:48→20:46)
[2017-09-14] MEDS: FERROUS GLUCONATE 324 MG TAB PO SCH ×3 (08:49→17:41)
[2017-09-14] MEDS: ASPIRIN 325 MG ECTAB PO SCH ×2 (08:49→20:46)
[2017-09-14] MEDS: MULTIVITAMIN TAB PO SCH (08:49)
--- NOTE | 2017-09-14 08:50 | Family Medicine Progress Note ---
Progress Note Date of Service Sep 14, 2017. Subjective Pt evaluation today including: conversation w/ patient, physical exam, chart review, lab review, review of inpatient medication list Pain: Left hip pain reported PO Intake: Tolerating PO intake Ms. Mendoza reports she feels better today. She states she was diaphoretic overnight, but is not this morning. She denies any localizing symptoms such as headache, chest pain, shortness of breath, abdominal pain, or calf pain. She does report pain over her incision site but states it does not radiate, and it has not worsened from yesterday. She states she is eating and drinking well, and has no flu-like symptoms. Constitutional: No fever, No chills Respiratory: No cough, No sputum, No wheezing, No shortness of breath Cardiovascular: No chest pain Abdomen: No pain, No nausea, No vomiting Musculoskeletal: + joint pain (left hip) All Other Systems: Reviewed and Negative Medications Current Inpatient Medications Medications (Trade) Dose Ordered Sig/Cami Route Start Time Stop Time Status Last Admin Dose Admin Miscellaneous (Remove Transderm-Scop Patch) 1 ea Q72H N/A 09/16/17 06:00 09/16/17 06:01 Miscellaneous Information (Check Scopolamine Patch Placement) 1 ea QS N/A 09/13/17 16:00 09/16/17 05:59 09/14/17 07:46 1 EA Potassium Chloride/Dextrose/ Sod Cl 1,000 ml @ 150 mls/hr Q6H40M IV 09/13/17 10:30 09/14/17 08:48 09/14/17 05:12 150 MLS/HR Ketorolac Tromethamine (Toradol Inj) 30 mg Q6H IV. 09/14/17 08:00 09/16/17 07:59 09/14/17 07:45 30 MG Oxycodone HCl (Roxicodone Immediate Rel Tab) 1 TABLET FOR PAIN RATING... Q4H PRN PO 09/14/17 07:01 09/28/17 07:00 Magnesium Hydroxide (Milk Of Magnesia Susp) 30 ml Q6H PRN PO 09/13/17 09:00 10/13/17 08:59 Bisacodyl (Dulcolax Supp) 10 mg DAILY PRN IA 09/13/17 09:00 10/13/17 08:59 Senna (Senokot Tab) 17.2 mg HS PO 09/13/17 21:00 10/13/17 20:59 09/13/17 21:43 17.2 MG Docusate Sodium (coLACE CAP) 100 mg BID PO 09/13/17 09:00 10/13/17 08:59 09/13/17 21:42 100 MG Diphenhydramine HCl (Benadryl Cap) 25 mg Q8H PRN PO 09/14/17 07:01 10/14/17 07:00 Diphenhydramine HCl (Benadryl Inj) 25 mg Q8H PRN IV 09/14/17 07:01 10/14/17 07:00 Al Hydrox/Mg Hydrox/Simethicone (Maalox Max Susp) 15 ml Q4H PRN PO 09/13/17 09:00 10/13/17 08:59 Zolpidem Tartrate (Ambien Tab) 5 mg HSZ PRN PO 09/14/17 07:01 10/14/17 07:00 Multivitamins (Multivitamin Tab) 1 tab QAM PO 09/13/17 09:00 10/13/17 08:59 09/13/17 13:01 1 TAB Ondansetron HCl (Zofran Inj) 4 mg Q6H PRN IV 09/14/17 07:01 10/14/17 07:00 Metoclopramide HCl (Reglan Inj) 10 mg Q6H PRN IV 09/14/17 07:01 10/14/17 07:00 Ferrous Gluconate (Ferrous Gluconate Tab) 324 mg TIDM PO 09/13/17 12:30 10/13/17 12:29 09/13/17 17:37 324 MG Pantoprazole Sodium (Protonix Tab) 40 mg QAM PO 09/13/17 09:00 10/13/17 08:59 09/13/17 13:00 40 MG Silver Sulfadiazine (Silvadene 1% Crm 50GM Jar) 1 appln BID PRN EXT 09/13/17 09:00 10/13/17 08:59 Aspirin (Ecotrin Tab) 325 mg BID PO 09/13/17 21:00 10/13/17 20:59 09/13/17 21:42 325 MG Tapentadol (Nucynta Er Tab) 50 mg BID PO 09/14/17 09:00 10/14/17 08:59 Citalopram Hydrobromide (celeXA TAB) 40 mg HS PO 09/13/17 21:00 10/13/17 20:59 09/13/17 21:43 40 MG Lamotrigine (Lamictal Tab) 200 mg HS PO 09/13/17 21:00 10/13/17 20:59 09/13/17 21:42 200 MG Hydromorphone HCl (Dilaudid Inj) 0.5 mg Q1H PRN IV 09/14/17 07:01 09/28/17 07:00 Morphine Sulfate (MoRPHine SULFATE INJ) 2 mg Q2H PRN IV 09/13/17 09:45 09/27/17 07:00 Ioversol (Optiray 320) 100 ml UD PRN IV 09/13/17 22:45 09/17/17 22:44 Acetaminophen (Tylenol Tab) 650 mg Q6 PO 09/14/17 12:00 10/14/17 11:59 Objective Vital Signs Date Time Temp Pulse Resp B/P (MAP) Pulse Ox O2 Delivery O2 Flow Rate FiO2 09/14/17 08:00 Room Air 09/14/17 07:35 37.0 85 20 134/75 (94) 98 Nasal Cannula 2.0 09/14/17 07:03 17 84 09/14/17 07:03 37.0 09/14/17 06:10 37.9 09/14/17 05:45 16 98 09/14/17 04:45 16 96 09/14/17 03:45 16 97 09/14/17 03:39 38.1 104 16 161/85 (110) 97 Nasal Cannula 2.0 09/14/17 02:45 16 97 09/14/17 01:45 16 96 09/14/17 01:07 37.3 09/14/17 00:45 16 96 09/14/17 00:05 Nasal Cannula 2.0 09/13/17 23:51 38.7 09/13/17 23:45 16 96 09/13/17 22:59 38.8 114 18 141/84 (103) 95 Nasal Cannula 2.0 09/13/17 22:00 116 137/82 (100) 09/13/17 19:10 16 97 09/13/17 17:59 16 97 09/13/17 16:41 16 95 09/13/17 15:43 16 94 09/13/17 15:30 Nasal Cannula 2.0 09/13/17 15:20 36.9 120 18 113/82 (92) 96 Nasal Cannula 2.0 09/13/17 12:45 16 96 09/13/17 12:34 36.8 106 19 119/78 (92) 96 Nasal Cannula 2.0 09/13/17 11:45 16 98 09/13/17 11:39 36.4 102 18 137/77 (97) 98 Nasal Cannula 2.0 09/13/17 10:46 37.0 96 18 142/84 (103) 93 Nasal Cannula 2.0 09/13/17 10:45 16 96 09/13/17 10:12 36.9 95 19 117/71 (86) 97 Room Air 09/13/17 09:45 Nasal Cannula 2.0 09/13/17 09:45 Nasal Cannula 2.0 09/13/17 09:45 36.9 94 16 125/71 (89) 94 Nasal Cannula 2.0 09/13/17 09:45 16 94 09/13/17 09:30 90 16 117/59 97 Nasal Cannula 3 09/13/17 09:15 36.9 88 16 109/62 98 Nasal Cannula 3 09/13/17 09:05 89 16 111/67 98 Nasal Cannula 3 09/13/17 08:55 88 14 118/75 100 Oxymask 3 09/13/17 08:49 36.9 90 16 126/54 100 Oxymask 5 Physical Exam General Appearance: WD/WN, no apparent distress Eyes: normal inspection, sclerae normal ENT: normal ENT inspection, hearing grossly normal, TMs normal, pharynx normal Respiratory/Chest: chest non-tender, normal breath sounds, no respiratory distress, no accessory muscle use, + decreased breath sounds Cardiovascular: regular rate, rhythm, no edema, no gallop, no JVD, no murmur Abdomen: normal bowel sounds, non tender, soft, no organomegaly, no pulsatile mass Extremities: normal inspection, no pedal edema, no calf tenderness, normal capillary refill, + pertinent finding (left hip w/dressing that is c/d/i) Neurologic/Psychiatric: alert, normal mood/affect, oriented x 3 Laboratory Results Last 24 Hours Test 09/13/17 19:52 09/13/17 22:45 09/14/17 06:47 White Blood Count 14.81 K/uL 13.99 K/uL Red Blood Count 3.89 M/uL 3.48 M/uL Hemoglobin 11.9 g/dL 10.7 g/dL Hematocrit 35.6 % 31.2 % Mean Corpuscular Volume 91.5 fL 89.7 fL Mean Corpuscular Hemoglobin 30.6 pg 30.7 pg Mean Corpuscular Hemoglobin Concent 33.4 g/dl 34.3 g/dl Platelet Count 302 K/uL 208 K/uL Mean Platelet Volume 9.5 fL 9.5 fL Neutrophils (%) (Auto) 77.9 % 80.2 % Lymphocytes (%) (Auto) 14.5 % 11.2 % Monocytes (%) (Auto) 6.1 % 7.6 % Eosinophils (%) (Auto) 0.9 % 0.6 % Basophils (%) (Auto) 0.3 % 0.1 % Neutrophils # (Auto) 11.53 K/uL 11.23 K/uL Lymphocytes # (Auto) 2.15 K/uL 1.56 K/uL Monocytes # (Auto) 0.91 K/uL 1.06 K/uL Eosinophils # (Auto) 0.13 K/uL 0.08 K/uL Basophils # (Auto) 0.04 K/uL 0.02 K/uL RDW Standard Deviation 43.9 fL 43.2 fL RDW Coefficient of Variation 13.3 % 13.2 % Immature Granulocyte % (Auto) 0.3 % 0.3 % Immature Granulocyte # (Auto) 0.05 K/uL 0.04 K/uL D-Dimer 2060 ug/L FEU Sodium Level 136 mmol/L 135 mmol/L Potassium Level 4.5 mmol/L 3.7 mmol/L Chloride Level 102 mmol/L 103 mmol/L Carbon Dioxide Level 28 mmol/L 27 mmol/L Anion Gap 6.0 mmol/L 5.0 mmol/L Blood Urea Nitrogen 13 mg/dl 10 mg/dl Creatinine 1.28 mg/dl 0.95 mg/dl Est Creatinine Clear Calc Drug Dose 70.2 ml/min 94.6 ml/min Estimated GFR () 54.5 78.2 Estimated GFR (Non- 47.0 67.4 BUN/Creatinine Ratio 9.9 10.5 Random Glucose 142 mg/dl 140 mg/dl Calcium Level 8.5 mg/dl 8.1 mg/dl Troponin I < 0.015 ng/ml Urine Color YELLOW Urine Appearance TURBID Urine pH 5.0 Urine Specific [place] > 1.045 Urine Protein NEG Urine Glucose (UA) NEG Urine Ketones NEG Urine Occult Blood NEG Urine Nitrite NEG Urine Bilirubin NEG Urine Urobilinogen NEG Urine Leukocyte Esterase NEG Urine WBC (Auto) 10-30 /hpf Urine RBC (Auto) 0-4 /hpf Urine Hyaline Casts (Auto) 5-10 /lpf Urine Epithelial Cells (Auto) 10-20 /lpf Urine Bacteria (Auto) NEG Assessment and Plan Ms. Mendoza is a 57 year old lady with a past medical history of bipolar disorder, depression, and hypercholesterolemia who became tachycardic, diaphoretic and febrile post-left hip replacement on 09/13 for chronic degenerative disease. Post Op Tachycardia/diaphoresis - post-op day 1 - currently afebrile, and not tachycardic - CTA negative for PE, troponins negative, UA negative, cxr negative, likely not alcohol withdrawal given she seldom drinks - WCC decreased from 14.8 yesterday to 13.9 today - bcx pending - will monitor, but likely post-anesthesia effect given her symptoms were transient and she does not have any localizing symptoms - patient received cefazolin yesterday Depression/Bipolar disorder - continue lamictal and citalopram Code: Full DVT Prophylaxis: SCDs, teds & aspirin BID Disposition: remains on med/surg Thank you for the consult, will continue to follow. Resident Physician Supervision Note: I was present with PGY1 Dr. Crissy Saez during the history and exam. I discussed the case with the resident and agree with the findings and plan as documented in the note. Any exceptions or clarifications are listed here: none. Despite fever/diaphoresis yesterday patient feels well this am with good appetite and no symptoms of infection (denies fever, chills, body aches, dysuria , cough, dyspnea, chest pain). VSS afebrile gen - nad neck - no JVD mouth - MMM heart - RRR lungs - CTA b/l abd - soft, NT, ND, BS+ ext - left hip dressing in place; no peripheral edema; pulses 2+ b/l CBC, BMP reviewed A/P: post-op SIRS - resolving. unclear etiology - post-op inflammatory cascade leading to fever/diaphoresis? no source of infection seen on blood work/cultures, CTA chest, etc. follow temp curve & cultures. EKGs - had 1 inferior lead with flipped T wave but other segments were wnl. I don't believe this was cardiac. Documented By: Chung Ma MD Resident Tracking Resident Involvement: Resident Care Provided Care Provided: Adult Hospital Medicine
--- NOTE | 2017-09-14 08:51 | Clinical Documentation Query ---
CLINICAL DOCUMENTATION QUERY A 57 y/o F who underwent left hip replacement this morning for advanced degenerative disease, with an elevated temperature, WBC, tachycardia and diaphoretic. In your clinical opinion is this patient being managed for: ( ) Sepsis, unspecified organism ( ) Not Agree ( ) Other explanation of clinical findings (Please Explain) ( ) Unable to determine (Please Define) ( ) Need to Discuss SIRS criteria (2 or more of the following): Temp < 96.8*F/36*C or > 100.4*F/38*C Resps > 20 breaths/min Pulse > 90 bpm PaCO2 <32 mmHg WBC > 12K or < 4K or Bands > 10% The medical record reflects the following clinical findings, treatment, and risk factors. Clinical Indicators: WBC 14.81, temp 38.8, pulse 120, diaphoresis Treatment: Blood cultures, Cefazolin IV Risk Factors: S/P surgical event, tachycardia, diaphoretic, elevated WBC, fever Please clarify and document your clinical opinion in the progress notes and discharge summary. Terms such as "probable", "suspected", "likely", "questionable", "possible", or "still to be ruled out" are acceptable. IF IN AGREEMENT, YOU MUST DOCUMENT ABOVE DIAGNOSTIC STATEMENT IN DAILY PROGRESS NOTES AND DISCHARGE SUMMARY. This document is not part of the patient's record. Thank You, Malia Nieves RN [phone]
[2017-09-14] MEDS: ACETAMINOPHEN 325 MG TAB PO SCH ×3 (12:21→23:59)
--- NOTE | 2017-09-14 12:57 | Anesthesiology Progress Note ---
Anesthesia Post Op Note Date & Time Sep 14, 2017 at 12:57 Vital Signs Pain Intensity: 6.0 Vital Signs Past 12 Hours Date Time Temp Pulse Resp B/P (MAP) Pulse Ox O2 Delivery O2 Flow Rate FiO2 09/14/17 12:10 36.4 86 16 102/67 (79) 95 Room Air 09/14/17 08:00 Room Air 09/14/17 07:35 37.0 85 20 134/75 (94) 98 Nasal Cannula 2.0 09/14/17 07:03 17 84 09/14/17 07:03 37.0 09/14/17 06:10 37.9 09/14/17 05:45 16 98 09/14/17 04:45 16 96 09/14/17 03:45 16 97 09/14/17 03:39 38.1 104 16 161/85 (110) 97 Nasal Cannula 2.0 09/14/17 02:45 16 97 09/14/17 01:45 16 96 09/14/17 01:07 37.3 Notes Mental Status: alert / awake / arousable, participated in evaluation Pt Amnestic to Procedure: Yes Nausea / Vomiting: adequately controlled Pain: adequately controlled Airway Patency, RR, SpO2: stable & adequate BP & HR: stable & adequate Hydration State: stable & adequate Neuraxial Anesthesia: sensory block resolved Anesthetic Complications: no major complications apparent
--- NOTE | 2017-09-14 15:17 | PROGRESS NOTE ---
DATE: 09/14/2017 SUBJECTIVE: A 57-year-old female postop day #1 from a left hip replacement. She is doing pretty well. Pain is very well controlled. Denies any chest pain or shortness of breath. Just feels a little bit white gout. OBJECTIVE: VITAL SIGNS: Temperature is 37.3. Vital signs stable. Pulse 92. She had been tachycardic yesterday. GENERAL: Reveals a healthy pleasant, middle-aged female. I had to wake her to go in the room this afternoon. She is lying in bed, looks pretty comfortable. EXTREMITIES: Examination of left hip and leg reveals the dressing to be in place. Leg lengths are equal. Hip is located. She can dorsiflex and plantarflex her foot appropriately. She is neurologically intact. LABORATORY DATA: Hemoglobin 10.7. Hematocrit 31.2. White cell count 13.99. Electrolytes are stable. IMAGING STUDIES: She had an ultrasound of her legs which revealed no signs of DVT. She had a chest CT shows no PE. Chest x-ray is essentially normal. ASSESSMENT: A 57-year-old female postop day #1 from left total hip replacement, doing pretty well. She was fairly tachycardic yesterday, but this seems to have resolved. It could be related to a fever versus just postoperative changes from the surgery. She is not symptomatic at all at this point. Her workup has been negative. PLAN: 1. DVT prophylaxis including thigh-high TEDs, SCDs, and aspirin. 2. PT/OT. She can weightbear as tolerated. Left total hip protocol. 3. Pain control, doing pretty well with current pain regimen. 4. Tachycardia. We have consulted medicine to follow her and manage this. It looks like this is resolving on its own. 5. Disposition: She is planning to be discharged to home with some home health once adequately recovered.
[2017-09-14] MEDS: CITALOPRAM 40 MG TAB PO SCH (20:46)
[2017-09-14] MEDS: SENNA 8.6 MG TAB PO SCH (20:46)
[2017-09-14] MEDS ORDERED: FRRG PO (21:03)
[2017-09-14] MEDS ORDERED: ASPEC325 PO (21:03)
[2017-09-14] MEDS ORDERED: ACET-1047 PO (21:03)
[2017-09-14] MEDS ORDERED: RXC5 PO (21:03)
--- NOTE | 2017-09-14 21:06 | Discharge Instructions ---
Discharge Instructions Date of Service Sep 14, 2017. Admission Reason for Admission: Left Hip Degenerative Joint Disease Discharge Discharge Diagnosis / Problem: Left Hip Replacement Discharge Goals Goal(s): Decrease discomfort, Improve function, Increase independence, Improve disease control, Therapeutic intervention Activity Recommendations Activity Limitations: per Instructions/Follow-up section (Total Hip Precautions ) Weightbearing Status: Right weightbearing . Instructions / Follow-Up Instructions / Follow-Up ACTIVITY RECOMMENDATIONS: Physical Therapy: * Aggressive physical therapy is not usually needed. You will learn to take care of yourself safely and walk. * Follow the "Hip Precautions Instructions." * In some cases, the healthcare social worker at the hospital will arrange to have a therapist come to your house for the first couple of weeks to help you learn these skills. * You need to practice on your own or with the help of a family member as needed. * When you learn these skills, most of the therapy can be done on your own. Home Exercise: * You were shown a series of exercises in the hospital. Do these exercises three to four times each day including the exercises you were shown in physical therapy. Walking: * Get up and walk several times each day. For the first four weeks, try not to stand or walk for more than one hour at a time. If you do stand or walk for more than one hour, you will not hurt anything, but your leg will likely swell. * As you feel comfortable, you may change from the walker or crutches to a cane and then to independent walking. MEDICATIONS: New Medicine: * You will likely be taking one or more of these medicines: 1. Oxycodone - Take, as directed, when you need it, every four to six hours to control your pain. 2. Iron Sulfate - Take three times each day for the month after surgery to help you replace the blood lost during surgery. 3. Aspirin - Thins your blood to lessen the chance of forming a blood clot. * The most common side effects of pain medicine and iron are nausea and constipation. If nausea or constipation is too much of a problem or if you have any questions about your new medicines or doses, call [facility] at [phone]. We will try to help you manage these issues. VERY IMPORTANT TO READ AND REVIEW" Pain: * The immediate post-operative period after hip replacement surgery is often quite painful. * You are given a prescription for pain medicine. You should take it, as directed, when you need it, especially before physical therapy and before going to bed. Pain that interferes with sleep is very common and can last several months. * You will likely need pain medicine for the first two to four weeks. It will not stop all of the pain. The pain will lessen and as you feel better, you may change to milder pain medicine such as Tylenol. * The most common side effects of pain medicine are nausea and constipation, so don't take more than you need. SPECIAL CARE INSTRUCTIONS: TEDs/Elastic Stockings: * The white elastic stockings help limit swelling and prevent blood clots from forming in your legs. The more you wear them, the more they work. * Wear them for six weeks. Prevention of Infection: * Take antibiotics one hour before any dental cleaning, dental work, urological procedure, gastrointestinal procedure or any invasive surgery in order to prevent your new joint from getting infected. * You may get the antibiotics from the doctor performing the procedure or you may call our office at before and we will call in a prescription to the pharmacy of your choice. Things to Watch For: * Drainage from the incision site that occurs more than one week after your surgery. * Severely increased leg pain or swelling. * Increased redness at the incision site. * Fever above 102 degrees Fahrenheit. * Unusual chest pain or shortness of breath. * Unusual pain or burning with urination. Call [facility] at with any of the above problems or if you have any questions about your medicines or recovery. FOLLOW UP VISIT: Make an appointment to see your doctor for approximately two weeks after surgery for a progress check and staple removal by calling the office at . Current Hospital Diet Patient's current hospital diet: Regular Diet Discharge Diet Recommended Diet: Regular Diet Procedures Procedures Performed: Left Total Hip Arthroplasty--Uncemented Pending Studies Studies pending at discharge: no Laboratory Results Hemoglobin A1c Test 08/17/17 09:15 Range/Units Estimated Average Glucose 103 mg/dl Hemoglobin A1c 5.2 4.5-5.6 % Medical Emergencies . Who to Call and When: Medical Emergencies: If at any time you feel your situation is an emergency, please call 911 immediately. . Non-Emergent Contact Non-Emergency issues call your: Surgeon . "Provider Documentation" section prepared by Macho Brar. . VTE Core Measure Inpt VTE Proph given/why not?: Other Anticoagulation, T.E.D. Stockings, SCD's
[2017-09-15] MEDS: KETOROLAC TROMETHAMINE 30 MG/ML VIAL IV. SCH ×2 (02:21→08:00)
[2017-09-15] MEDS: ACETAMINOPHEN 325 MG TAB PO SCH ×2 (06:05→11:45)
[2017-09-15 06:19] VITALS: BP 92/59; PULSE 89; TEMP 36.9; O2SAT 97
[2017-09-15 07:18] LABS: HEMATOCRIT 32.3 % (37-47); MEAN CELL VOLUME 89.7 fL (80-100); MEAN CORPUSCULAR HEMOGLOBIN 30.3 pg (25-34); MEAN CORPUSCULAR HGB CONC 33.7 g/dl (32-36); MEAN PLATELET VOLUME 9.6 fL (7.4-10.4); PLATELET COUNT 216 K/uL (130-400); WHITE BLOOD COUNT 15.13 K/uL (4.8-10.8)
--- NOTE | 2017-09-15 07:37 | PROGRESS NOTE ---
DATE: 09/15/2017 SUBJECTIVE: This is a 57-year-old female postop day 2 from a left total hip replacement. She is doing well. Pain is controlled. Denies any chest pain or shortness of breath. No feeling dizzy or lightheaded. OBJECTIVE: VITAL SIGNS: Temperature is 36.9. Vital signs stable. Heart rate is 89 and back to baseline. GENERAL: Reveals a pleasant, middle-aged female. The patient is sitting up in her bedside chair and looks quite comfortable. LUNGS: Clear to auscultation. HEART: Regular rate and rhythm. ABDOMEN: Soft, nontender, nondistended. EXTREMITIES: Grossly neurovascularly intact except as follows: Examination of left hip and leg reveals the dressing to be clean, dry and intact. Hip is located. She is neurologically intact. LABORATORY DATA: Pending. ASSESSMENT: A 57-year-old white female postop day 2 from left total hip replacement, doing pretty well. She had some intermittent tachycardia, but asymptomatic. It seems to be resolving. Pain is controlled. Hips located. She is neurologically intact. PLAN: 1. DVT prophylaxis including thigh-high TEDs, SCDs, and aspirin twice a day. 2. PT/OT. Weightbearing as tolerated. Left total hip protocol. 3. Pain control, doing well with current pain regimen. 4. Disposition: Plan to discharge to home with some home health.
[2017-09-15 07:43] LABS: BUN/CREATININE RATIO 11.1 (10-20); CALCIUM 8.7 mg/dl (8.5-10.1); CREATININE 0.88 mg/dl (0.60-1.20); POTASSIUM 3.7 mmol/L (3.5-5.1)
[2017-09-15] MEDS: CHECK SCOPOLAMINE PATCH PLACEMENT SCH (08:00)
[2017-09-15 08:30] VITALS: O2SAT 97
[2017-09-15] MEDS: FERROUS GLUCONATE 324 MG TAB PO SCH ×2 (08:30→11:44)
[2017-09-15] MEDS: ASPIRIN 325 MG ECTAB PO SCH (09:00)
[2017-09-15] MEDS: TAPENTADOL ER 50 MG TABCR PO SCH (09:00)
[2017-09-15] MEDS: PANTOprazole SOD 40 MG TAB PO SCH (09:00)
[2017-09-15] MEDS: MULTIVITAMIN TAB PO SCH (09:00)
[2017-09-15] MEDS: DOCUSATE SODIUM 100 MG CAP PO SCH (09:00)
--- NOTE | 2017-09-15 11:18 | Family Medicine Progress Note ---
Progress Note Date of Service Sep 15, 2017. Subjective Pt evaluation today including: conversation w/ patient, physical exam, chart review, lab review, review of inpatient medication list Pain: No pain reported PO Intake: Tolerating PO intake Voiding: no voiding problems Ms. Mendoza reports she feels well today. She denies any more episodes of tachycardia, and diaphoresis. She states her pain is well-controlled. She denies chest pain, n/v, abdominal pain. She has no urinary symptoms, and has been passing flatus, but has not had a bowel movement as yet. Constitutional: No fever, No chills Respiratory: No cough, No sputum, No wheezing, No shortness of breath, No dyspnea on exertion Cardiovascular: No chest pain Abdomen: No pain, No nausea, No vomiting Musculoskeletal: No joint pain, No muscle pain, No calf pain All Other Systems: Reviewed and Negative Medications Current Inpatient Medications Medications (Trade) Dose Ordered Sig/Cami Route Start Time Stop Time Status Last Admin Dose Admin Miscellaneous (Remove Transderm-Scop Patch) 1 ea Q72H N/A 09/16/17 06:00 09/16/17 06:01 Miscellaneous Information (Check Scopolamine Patch Placement) 1 ea QS N/A 09/13/17 16:00 09/16/17 05:59 09/14/17 23:59 1 EA Ketorolac Tromethamine (Toradol Inj) 30 mg Q6H IV. 09/14/17 08:00 09/16/17 07:59 09/15/17 02:21 30 MG Oxycodone HCl (Roxicodone Immediate Rel Tab) 1 TABLET FOR PAIN RATING... Q4H PRN PO 09/14/17 07:01 09/28/17 07:00 09/14/17 08:48 5 MG Magnesium Hydroxide (Milk Of Magnesia Susp) 30 ml Q6H PRN PO 09/13/17 09:00 10/13/17 08:59 Bisacodyl (Dulcolax Supp) 10 mg DAILY PRN CO 09/13/17 09:00 10/13/17 08:59 Senna (Senokot Tab) 17.2 mg HS PO 09/13/17 21:00 10/13/17 20:59 09/14/17 20:46 17.2 MG Docusate Sodium (coLACE CAP) 100 mg BID PO 09/13/17 09:00 10/13/17 08:59 09/14/17 20:46 100 MG Diphenhydramine HCl (Benadryl Cap) 25 mg Q8H PRN PO 09/14/17 07:01 10/14/17 07:00 Diphenhydramine HCl (Benadryl Inj) 25 mg Q8H PRN IV 09/14/17 07:01 10/14/17 07:00 Al Hydrox/Mg Hydrox/Simethicone (Maalox Max Susp) 15 ml Q4H PRN PO 09/13/17 09:00 10/13/17 08:59 Zolpidem Tartrate (Ambien Tab) 5 mg HSZ PRN PO 09/14/17 07:01 10/14/17 07:00 Multivitamins (Multivitamin Tab) 1 tab QAM PO 09/13/17 09:00 10/13/17 08:59 09/14/17 08:49 1 TAB Ondansetron HCl (Zofran Inj) 4 mg Q6H PRN IV 09/14/17 07:01 10/14/17 07:00 Metoclopramide HCl (Reglan Inj) 10 mg Q6H PRN IV 09/14/17 07:01 10/14/17 07:00 Ferrous Gluconate (Ferrous Gluconate Tab) 324 mg TIDM PO 09/13/17 12:30 10/13/17 12:29 09/14/17 17:41 324 MG Pantoprazole Sodium (Protonix Tab) 40 mg QAM PO 09/13/17 09:00 10/13/17 08:59 09/14/17 08:48 40 MG Silver Sulfadiazine (Silvadene 1% Crm 50GM Jar) 1 appln BID PRN EXT 09/13/17 09:00 10/13/17 08:59 Aspirin (Ecotrin Tab) 325 mg BID PO 09/13/17 21:00 10/13/17 20:59 09/14/17 20:46 325 MG Tapentadol (Nucynta Er Tab) 50 mg BID PO 09/14/17 09:00 10/14/17 08:59 09/14/17 20:47 50 MG Citalopram Hydrobromide (celeXA TAB) 40 mg HS PO 09/13/17 21:00 10/13/17 20:59 09/14/17 20:46 40 MG Lamotrigine (Lamictal Tab) 200 mg HS PO 09/13/17 21:00 10/13/17 20:59 09/14/17 20:46 200 MG Hydromorphone HCl (Dilaudid Inj) 0.5 mg Q1H PRN IV 09/14/17 07:01 09/28/17 07:00 Morphine Sulfate (MoRPHine SULFATE INJ) 2 mg Q2H PRN IV 09/13/17 09:45 09/27/17 07:00 09/14/17 12:22 2 MG Ioversol (Optiray 320) 100 ml UD PRN IV 09/13/17 22:45 09/17/17 22:44 Acetaminophen (Tylenol Tab) 650 mg Q6 PO 09/14/17 12:00 10/14/17 11:59 09/15/17 06:05 650 MG Objective Vital Signs Last 24 Hours Test 09/15/17 06:59 White Blood Count 15.13 K/uL Red Blood Count 3.60 M/uL Hemoglobin 10.9 g/dL Hematocrit 32.3 % Mean Corpuscular Volume 89.7 fL Mean Corpuscular Hemoglobin 30.3 pg Mean Corpuscular Hemoglobin Concent 33.7 g/dl RDW Standard Deviation 42.9 fL RDW Coefficient of Variation 13.1 % Platelet Count 216 K/uL Mean Platelet Volume 9.6 fL Sodium Level 137 mmol/L Potassium Level 3.7 mmol/L Chloride Level 106 mmol/L Carbon Dioxide Level 27 mmol/L Anion Gap 4.0 mmol/L Blood Urea Nitrogen 10 mg/dl Creatinine 0.88 mg/dl Est Creatinine Clear Calc Drug Dose 102.1 ml/min Estimated GFR () 85.7 Estimated GFR (Non- 74.0 BUN/Creatinine Ratio 11.1 Random Glucose 106 mg/dl Calcium Level 8.7 mg/dl Physical Exam General Appearance: WD/WN, no apparent distress Respiratory/Chest: chest non-tender, normal breath sounds, no respiratory distress, no accessory muscle use, + decreased breath sounds Cardiovascular: regular rate, rhythm, no edema, no gallop, no JVD, no murmur Abdomen: normal bowel sounds, non tender, soft, no organomegaly, no pulsatile mass Extremities: normal range of motion, non-tender, normal inspection, + pertinent finding (bandage over left hip, c/d/i) Laboratory Results Last 24 Hours Test 09/15/17 06:59 White Blood Count 15.13 K/uL Red Blood Count 3.60 M/uL Hemoglobin 10.9 g/dL Hematocrit 32.3 % Mean Corpuscular Volume 89.7 fL Mean Corpuscular Hemoglobin 30.3 pg Mean Corpuscular Hemoglobin Concent 33.7 g/dl RDW Standard Deviation 42.9 fL RDW Coefficient of Variation 13.1 % Platelet Count 216 K/uL Mean Platelet Volume 9.6 fL Sodium Level 137 mmol/L Potassium Level 3.7 mmol/L Chloride Level 106 mmol/L Carbon Dioxide Level 27 mmol/L Anion Gap 4.0 mmol/L Blood Urea Nitrogen 10 mg/dl Creatinine 0.88 mg/dl Est Creatinine Clear Calc Drug Dose 102.1 ml/min Estimated GFR () 85.7 Estimated GFR (Non- 74.0 BUN/Creatinine Ratio 11.1 Random Glucose 106 mg/dl Calcium Level 8.7 mg/dl Assessment and Plan Ms. Mendoza is a 57 year old lady with a past medical history of bipolar disorder, depression, and hypercholesterolemia who became tachycardic, diaphoretic and febrile post-left hip replacement on 09/13 for chronic degenerative disease. Post Op Tachycardia/diaphoresis - post-op day 2 - currently afebrile, and not tachycardic - no more episodes since the day of her surgery - CTA negative for PE, troponins negative, UA negative, cxr negative, likely not alcohol withdrawal given she seldom drinks - bcx negative - likely post-anesthesia effect given her symptoms were transient and she does not have any localizing symptoms Depression/Bipolar disorder - continue lamictal and citalopram Code: Full DVT Prophylaxis: SCDs, teds & aspirin BID Disposition: discharge today with home health Thank you for the consult. She is safe for discharge from a medical standpoint. Resident Physician Supervision Note: I was present with PGY1 Dr. Crissy Saez during the history and exam. I discussed the case with the resident and agree with the findings and plan as documented in the note. Any exceptions or clarifications are listed here: none. Pt feels very well today. Denies any cough, dyspnea, wheeze, abd pain, emesis, dysuria, myalgias, dizziness. +flatus, no BM; eating well. VSS afebrile gen - nad neck - no JVD mouth - MMM heart - RRR lungs - CTA b/l abd - soft, NT, ND, BS+ ext - no edema blood cx's negative A/P: post-op SIRS - resolved. unclear etiology but may have been due to post-op inflammatory response to surgery. no evidence of DVT or PE on imaging. no evidence of pneumonia clinically or radiographically. blood cx's negative nearly 48 hours. no fever in 24+ hours. u/a was not suspicious for UTI. clinically she appears well. I feel that medically she is optimized for discharge. With respect to lack of bowel movement - she has no symptoms/signs of ileus. Will need bowel regimen after d/c. Chung Ma MD Resident Tracking Resident Involvement: Resident Care Provided Care Provided: Adult Hospital Medicine
[2017-09-15 11:39] VITALS: BP 92/59; PULSE 89; TEMP 36.9; O2SAT 97
--- NOTE | 2017-09-16 08:52 | DISCHARGE SUMMARY ---
ADMITTING PHYSICIAN AND SURGEON: Dr. Brar. ADMITTING DIAGNOSIS: Left hip degenerative joint disease. SURGERY PERFORMED: Left total hip arthroplasty. SECONDARY DIAGNOSES: Depression, bipolar disorder, elevated cholesterol, obesity. CONSULTS: Dr. Pena postoperative tachycardia, diaphoresis. HISTORY AND PHYSICAL EXAMINATION: Well documented in the patient's chart. HOSPITAL COURSE: The patient was admitted on 09/13/2017 underwent total hip arthroplasty, tolerated the procedure well. There were no complications. She was transferred to the PACU postoperatively and later to the orthopedic floor for further care. She was given Ancef for antibiotic prophylaxis, KRISTEN stockings, SCDs and aspirin for DVT prophylaxis. Hemoglobin, hematocrit and vital signs were monitored during her hospital stay. She developed some postoperative anemia, did not require any blood transfusions. She had some tachycardia during her hospital stay as well as some diaphoresis and a fever. The hospitalist service was consulted. Her workup for DVT and PE were negative. Her fever resolved. There are no signs of any infection and clinically she improved and her tachycardia resolved. There were no complications during her hospital stay. By postoperative day 2, she was tolerating a regular diet, pain was controlled with oral pain medicine. She was participating in physical therapy and had no signs or symptoms of deep vein thrombosis. On postoperative day 2, she was discharged home and set up with home health services. She was given printed discharge instructions including new prescriptions for acetaminophen, aspirin 325 mg b.i.d., iron supplement and oxycodone. Continue her home medications, continue physical therapy, weightbearing as tolerated, KRISTEN stockings, total hip precautions and follow up in 10-12 days or sooner if there are any problems or concerns.
== END 2017-09-15 12:58 | disposition home health service (06) | DRG 470 ==
LOC: C.ACU 04:49 → C.3E 08:53 → ENRESERV 09:05
PROVIDERS: ADMIT Orthopaedic Surgery Sports Medicine; ATTEND Orthopaedic Surgery Sports Medicine
PROC: 0SRB04A Replacement of Left Hip Joint with Ceramic on Polyethylene Synthetic Substitute, Uncemented, Open Approach (ICD-10-PCS; principal; 2017-09-13 07:00)
DX: M16.12 Unilateral primary osteoarthritis, left hip (principal); Z68.42 Body mass index [BMI] 45.0-49.9, adult; R00.0 Tachycardia, unspecified; R50.9 Fever, unspecified; F31.9 Bipolar disorder, unspecified; E66.9 Obesity, unspecified; Z79.899 Other long term (current) drug therapy; Z96.652 Presence of left artificial knee joint

== ENCOUNTER → 2018-04-26 | Outpatient (CLI) | payer OTHER ==
[~2018-04-26] MED LIST changes: +ACET-1047 PO; +ASPEC325 PO; +FRRG PO; +RXC5 PO
[2018-04-26 14:37] LABS: CREATININE 1.03 mg/dl (0.60-1.20)
== END | disposition home or self-care (01) ==
LOC: C.LAB1850 12:45
PROVIDERS: ATTEND Physician Assistant
DX: M17.10 Unilateral primary osteoarthritis, unspecified knee (principal); Z79.899 Other long term (current) drug therapy

== ENCOUNTER 2019-06-01 07:54 | Inpatient (IN) ==
--- NOTE | 2019-05-04 12:54 | PAT Medication Instructions ---
Medication Instructions Date of Service May 04, 2019 Home Medications acetaminophen 1,000 mg PO Q6H PRN amoxicillin 2,000 mg PO DIRECTED PRN celecoxib [Celebrex] 200 mg PO QAM cetirizine [Zyrtec] 10 mg PO QPM citalopram [Celexa] 40 mg PO QAM clonazepam 1 mg PO HS lamotrigine [Lamictal ODT] 250 mg PO QPM multivitamin 1 tab PO QAM Continue as directed amoxicillin 2,000 mg PO DIRECTED PRN ASK your surgeon for instructions celecoxib [Celebrex] 200 mg PO QAM DO NOT take the morning of surgery multivitamin 1 tab PO QAM Take morning of surgery With a small sip of water, OTHERWISE NOTHING TO EAT OR DRINK AFTER MIDNIGHT: acetaminophen 1,000 mg PO Q6H PRN (if needed, may be taken up to four hours before surgery) citalopram [Celexa] 40 mg PO QAM Take evening before surgery acetaminophen 1,000 mg PO Q6H PRN (if needed) cetirizine [Zyrtec] 10 mg PO QPM clonazepam 1 mg PO HS lamotrigine [Lamictal ODT] 250 mg PO QPM Other Notes If you have any questions please call us at [phone] or [phone] or [phone] or [phone]
--- NOTE | 2019-05-04 14:30 | Anesthesiology Consultation ---
Date of Service May 04, 2019 Assessment & Plan (1) Encounter for pre-operative examination: S/P ARACELI 08/2017 = SAB x 1 attempt, no issues per record, patient reports good experience. Chart Review Chart Review: Acceptable Risk for Surgery and Patient seen in Pre Admission Testing Teaching & Discussion Instructed NPO after midnight before surgery, except medications with 15 cc of water. Medication instructions provided according to the PAT guidelines. History Surgery Operation Date: 06/01/19 10:40 Proposed Procedures p Right Total Knee Replacement - Macho Brar MD Height/Weight Height: 5 ft 7 in Weight: 133.8 kg Allergies Allergy/AdvReac Type Severity Reaction Status Date / Time No Known Allergies Allergy Verified 05/03/19 13:03 Medications Home Medications Medication Instructions Recorded Confirmed Last Taken acetaminophen 1,000 mg PO Q6H PRN 05/03/19 05/03/19 Unknown amoxicillin 2,000 mg PO DIRECTED PRN 05/03/19 05/03/19 Unknown celecoxib [Celebrex] 200 mg PO QAM 05/03/19 05/03/19 Unknown cetirizine [Zyrtec] 10 mg PO QPM 05/03/19 05/03/19 Unknown citalopram [Celexa] 40 mg PO QAM 05/03/19 05/03/19 Unknown clonazepam 1 mg PO HS 05/03/19 05/03/19 Unknown lamotrigine [Lamictal ODT] 250 mg PO QPM 05/03/19 05/03/19 Unknown multivitamin 1 tab PO QAM 05/03/19 05/03/19 Unknown Past Medical History Medical History Bipolar disorder Cat allergies Depression Environmental allergies Morbid obesity Osteoarthritis Exercise / Class Metabolic Activity III < 4 Walking/Shop/Light housework (Some mild SOB with 1 FOS, no chest pain. No SOB ambulating on single level.) Past Family History Family History Uncle Family history of diabetes mellitus Past Surgical History Surgical History History of left hip replacement History of total left knee replacement (TKR) Hx of tonsillectomy Hx of total hysterectomy Past Anesthesia History No Hx of Anesthesia Complications and No Family Hx of Anesthesia Complications History of PONV No Hx of PONV (Some vomiting from pain medications but not anesthesia) and No Hx of Motion Sickness Social History Smoking Status: Never smoker Do You Dip or Chew Tobacco: No Hx Alcohol Use: Yes Alcohol type: wine alcohol intake frequency: a few times a month Hx Substance Use: No Review of Systems Pt denies any recent chest pain, shortness of breath, palpitations, cough, fever or URI. Physical Exam Vital Signs BP: 134/82 P: 76bpm SPO2: 97% RA T: 98.2 F R: 16 Constitutional + morbidly obese ENMT Mouth: + dental restorations (bottom L implant); no chipped teeth and no loose teeth Thyromental Distance: > or= 3.5 Finger Breadths (4) Mallampati Class: I Neck + short neck and + thick neck; neck extension not limited Respiratory normal respiratory effort Auscultation: lungs clear to auscultation bilaterally Cardiovascular Rate/Rhythm: regular rate and regular rhythm Heart Sounds: no murmur Extremities: no edema Testing Laboratory Results 05/04/19 14:45 05/04/19 14:45 PT 10.8 Seconds (9.0-12.0) 05/04/19 14:45 INR 1.1 (0.9-1.1) 05/04/19 14:45 APTT 29.9 Seconds (21.0-31.0) 05/04/19 14:45 Blood Type O Positive 05/04/19 14:45 Antibody Screen NEGATIVE 05/04/19 14:45 Electrocardiogram Date: 05/04/19 Findings: + NSR @ (71bpm) Nonspecific ST abnormality. Compared with EKG of 09/14/2017 no significant changes found. Chest X-Ray Date: 05/04/19 Findings: + NAD
[2019-05-04 15:49] LABS: Basophils # (auto) 0.02 K/uL (0-0.2); Basophils % (auto) 0.3 %; Hematocrit (blood only) 39.2 % (37-47); Hemoglobin 13.6 g/dL (12.0-16.0); Immature Granulocytes # (auto) 0.01 K/uL (0.00-0.02); Immature Granulocytes % (auto) 0.2 %; Lymphocytes # (auto) 2.12 K/uL (1.2-3.4); Lymphocytes % (auto) 35.5 %; Mean Corpuscular Hgb Conc 34.7 g/dL (32-36); Mean Corpuscular Volume 89.1 fL (80-100); Mean Platelet Volume 9.8 fL (7.4-10.4); Monocytes # (auto) 0.38 K/uL (0.11-0.59); Monocytes % (auto) 6.4 %; Neutrophils # (auto) 3.14 K/uL (1.4-6.5); Neutrophils % (auto) 52.6 %; Platelet Count 240 K/uL (130-400); RDW Coefficient of Variation 12.9 % (11.5-14.5); RDW Standard Deviation 41.8 fL (36.4-46.3); White Blood Count 5.97 K/uL (4.8-10.8)
[2019-05-04 15:57] LABS: Calcium 9.1 mg/dl (8.5-10.1); Creatinine Clr Calc Pharmacy 94.3 ml/min; Est GFR (African American) 78.1; Est GFR (Non-African American) 67.3; Potassium 4.2 mmol/L (3.5-5.1)
[2019-05-04 15:59] LABS: INR 1.1 (0.9-1.1); Partial Thromboplastin Ratio 1.1; Partial Thromboplastin Time 29.9 Seconds (21.0-31.0); Prothrombin Time 10.8 Seconds (9.0-12.0)
--- NOTE | 2019-05-04 16:02 | XRay Report ---
XR chest Pre-admission PA/Lat HISTORY: 59 years-old Female pat preoperative exam. No acute chest complaints reported. COMPARISON: CTA of the chest and chest radiograph 09/13/2017 TECHNIQUE: PA and lateral views of the chest FINDINGS: Cardiomediastinal and hilar silhouettes are within normal limits. There is no pneumothorax, pleural e ffusion, focal airspace consolidation or overt pulmonary edema. Degenerative changes of the shoulders and spine. IMPRESSION: No acute process. The above report was generated using voice recognition software. It may contain grammatical, syntax o r spelling errors. Electronically signed by: Maicol Grace M.D. 05/04/2019 4:01 PM
[2019-05-04 16:11] LABS: C Reactive Protein 4.48 mg/dl (0-0.29)
--- NOTE | 2019-05-26 18:35 | History and Physical Report ---
DATE OF ADMISSION: 06/01/2019 CHIEF COMPLAINT: Right knee pain. HISTORY OF PRESENT ILLNESS: The patient is a 59-year-old female well known to me from previous left hip replacement done about a year and a half ago. She had her left knee replaced by Dr. Krishnamurthy in 2015. She is doing okay with this. She has continued to be limited by right knee pain and discomfort. She has a history of a right knee arthroscopy in the past. Over the past several years, she has developed increased pain and discomfort in her right knee that really affecting her quality of life. Other joints are doing okay. She describes mostly lateral sided pain. The more she walks, the more it hurts. She limps pretty much all day long and more as the day goes on. She has been through extensive conservative treatment which has not been provided any real relief lately. She takes Mobic. She would like to have her right knee fixed. PAST MEDICAL HISTORY: 1. Elevated cholesterol. 2. Anxiety/depression/bipolar disorder. 3. Osteoarthritis. 4. Obesity with BMI of 46. PAST SURGICAL HISTORY: Include: 1. Tonsillectomy. 2. Hysterectomy. 3. Left total knee replacement done by Dr. Krishnamurthy in 2015. 4. Left total hip replacement done by myself in 08/2017. 5. Bilateral knee arthroscopies. ALLERGIES: None. CURRENT MEDICINES: Include: 1. Celexa 40 mg. 2. Celebrex 200 mg. 3. Multivitamin. 4. Lamictal 250 mg a day. 5. Klonopin p.r.n. 6. Tylenol p.r.n. 7. Zyrtec p.r.n. SOCIAL HISTORY: A 59-year-old female. 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 She is single. She does not smoke. Rare alcohol intake. FAMILY HISTORY: Noncontributory. REVIEW OF HISTORY: Negative for diabetes, neurologic problem, vascular problem, bleeding disorders. No chest pain or shortness of breath. No history of DVT or PE. Does have a history of depression/bipolar disorder. PHYSICAL EXAMINATION: GENERAL: Shows a pleasant, middle-aged female, looks to be in reasonably good health. HEENT: Benign. NECK: Supple, no lymphadenopathy. LUNGS: Clear to auscultation. HEART: Regular rate and rhythm. ABDOMEN: Soft, nontender, nondistended. EXTREMITIES: Grossly neurovascularly intact except as follows: Examination of the right knee reveal patient ambulates independently. Moderate to large soft tissue envelope. She had slight valgus alignment to her knee. Small knee effusion. She is tender over the lateral joint line. Range of motion 5-125. No instability. No pain with hip motion. X-RAYS: The right knee reviewed. Shows advanced right knee lateral compartment DJD. She has complete loss of her lateral joint space on the 4-degree flexion films. She has osteophytes off the lateral tibial plateau and lateral femoral condyle. Left knee replacement looks to be in pretty good position. ASSESSMENT: A 59-year-old white female with a history of left hip replacement, left knee replacement and bilateral knee scopes with advanced right knee lateral compartment degenerative joint disease. She failed conservative treatment and would like to have her right knee replaced. PLAN: We are going to take her to the operating room and do right total knee replacement. The risks and benefits of this procedure were explained to the patient including but not limited to DVT, PE, , infection, neurological injury, vascular injury, bleeding problem, pain, limited range of motion, stiffness, failure to relieve symptoms, incomplete relief of symptoms, need for further surgery in future, etc. The patient understands and desires to proceed. Informed consent was obtained. She does live by herself. I think she has somebody that can come and stay with her. She will use [facility]. Her daughter is going to come and stay with her. I will see her back in 2 weeks postop.
[~2019-06-01 07:54] MED LIST changes: -ACET-1047 PO; +ACETAMINOPHEN 500 MG TAB PO SCH; -ASPEC325 PO; +BUPIVACAINE 0.5 % 5 MG/1 ML PF 10ML VIAL ONE; +BUPIVACAINE LIPOSOME/PF 266 MG, BUPIVACAINE/EPINEPHRINE 50 ML, SODIUM CHLORIDE 0.9% 30 ... INFIL SCH; +CEFAZOLIN 3000MG 72.5 ML IV SCH; -CITA40TA12 PO; +FAMOTIDINE 20 MG TAB PO SCH; -FRRG PO; +GABAPENTIN 600 MG DOSE PO SCH; -LMC100 PO; +LR 500ML BOLUS, THEN 15ML/HR IV SCH; +LR 60ML/HR IV SCH; -MELO7.5T5 PO; +METOCLOPRAMIDE HCL 10 MG TABLET PO SCH; -MULT-506 PO; +ROPIVACAINE 0.5% 5 MG/ML 30 ML VIAL ONE; -RXC5 PO; +SCOPOLAMINE 1.5 MG TDSY TD SCH; +TRANEXAMIC ACID 1,000 MG **IV Intra-op IV SCH
--- NOTE | 2019-06-01 08:52 | History & Physical Bridge Note ---
Date of Service June 01, 2019 History & Physical Bridge Note I have examined the patient, reviewed the History & Physical and in the interval since the performance of the History & Physical I have noted the following changes of clinical significance: no changes noted
[2019-06-01] MEDS ORDERED: fentaNYL citrate 100 MCG/2 ML VIAL ONE ×2 (09:47→11:19)
[2019-06-01] MEDS ORDERED: MIDAZOLAM HCL 1 MG/ML 2ML VIAL ONE (09:47)
[2019-06-01] MEDS ORDERED: ATROPINE SULFATE 0.1 MG/ML 10ML SYR IV PRN (10:00)
[2019-06-01] MEDS ORDERED: ePHEDrine sulfate 50 MG/ML AMP IV PRN (10:00)
[2019-06-01] MEDS ORDERED: BUPIVACAINE 0.25% 30 ML VIAL ONE (10:54)
[2019-06-01] MEDS ORDERED: EPINEPHrine INJ 1 MG/ML AMP ONE (10:54)
[2019-06-01] MEDS ORDERED: BUPIVACAINE LIPOSOME 1.3% 266 MG/20 ML VIAL ONE (10:54)
[2019-06-01] MEDS ORDERED: BACITRACIN INJ 50,000 UNIT VIAL ONE (10:54)
[2019-06-01] MEDS ORDERED: SODIUM CHLORIDE 0.9% PF 50 ML VIAL ONE (10:54)
[2019-06-01] MEDS ORDERED: KETAMINE HCL INJ 50 MG/ML 10 ML VIAL ONE (11:21)
[2019-06-01] MEDS ORDERED: GLYCOPYRROLATE 0.2 MG/ML VIAL ONE (11:28)
[2019-06-01] MEDS ORDERED: ONDANSETRON INJ 2 MG/ML 2 ML VIAL ONE (11:41)
[2019-06-01] MEDS ORDERED: LIDOCAINE HCL 2% 2 ML VIAL/AMP(20MG/ML) INFIL ONE (11:41)
[2019-06-01] MEDS ORDERED: PROPOFOL IV EMULSION 10 MG/ML 20 ML VIAL IV ONE ×2 (11:41→12:21)
--- NOTE | 2019-06-01 12:59 | Post Operative Brief Note ---
PG Immediate Post Op with CF Date of Surgery June 01, 2019 Pre & Post Diagnosis Operation Date: 06/01/19 10:40 Pre-Op Diagnosis: Right Knee Degenerative Joint Disease with Knee Pain Post-Op Diagnosis: Right Knee Degenerative Joint Disease with Knee Pain Procedure Operation Date: 06/01/19 10:40 Actual Procedures p Right Total Knee Arthroplasty, Cemented(Right) - Macho Brar MD Surgeon Macho Brar MD Radio Adjuster Evan, PAC Estimated Blood Loss 50 Findings Consistent with Post-Op Diagnosis Fluids 1000 cc Specimens Specimen Description: Permanent Specimen A: Right knee bone and tissue Drains Grubbs Catheter Anesthesia Type Spinal MAC Complications none Disposition Accompanied Patient To Recovery: No Disposition: Recovery Room
--- NOTE | 2019-06-01 13:43 | Operative Report ---
DATE OF OPERATION: 06/01/2019 SURGEON: Macho Brar MD PRODUCT SAFETY EXPERT: SABIHA Ac PREOPERATIVE DIAGNOSIS: Right knee degenerative joint disease. POSTOPERATIVE DIAGNOSIS: Right knee degenerative joint disease. PROCEDURE PERFORMED: Right cemented posterior stabilized total knee arthroplasty. COMPLICATIONS: None. ESTIMATED BLOOD LOSS: 50 mL. FLUID REPLACEMENT: 1000 mL crystalloid fluid replacement. TOURNIQUET TIME: 58 minutes at 300 mmHg. ANESTHESIA: Spinal with adductor canal block. DRAINS: None. SPECIMENS: Left knee sent for pathology. OPERATIVE INDICATIONS: The patient is a 59-year-old female who has had a long history of knee problems. She underwent a left knee replacement as well as the left hip replacement in the past. Over the past year to 2 years, she developed markedly increased pain and discomfort in her right knee. She failed all conservative care. She elected to proceed with operative treatment. OPERATIVE FINDINGS: Operative findings were advanced right knee DJD. She had grade 4 changes in all 3 compartments, most severe in the lateral side. She was in eburnation in the posterior lateral femoral condyle as well as a posterior lateral tibial plateau. She did have fairly diffuse and spotty grade 4 changes in the medial and patellofemoral compartments. OPERATIVE IMPLANTS: Operative implants consisted of: 1. Biomet Vanguard size 67.5 right posterior stabilized femoral component. 2. Biomet size 71 tibial tray. 3. A 10 mm posterior stabilized polyethylene insert. 4. A 31 x 8 all poly patella. OPERATIVE PROCEDURE: The patient taken to the operating room and identified and placed on the operating table in supine position. All contact areas were appropriately padded. IV antibiotics provided by anesthesia team. A spinal anesthetic and adductor canal block had been provided in the holding area. Grubbs catheter was placed in sterile fashion. A right thigh tourniquet was then placed and the right lower extremity was then prepped and draped in usual sterile fashion. The right leg was elevated and exsanguinated with an Esmarch and tourniquet was placed at 300 mmHg. An anterior approach of the right knee was then performed through a longitudinal incision centered over the patella. Sharp dissection was carried through subcutaneous tissue down to the level of the extensor mechanism. A medial parapatellar arthrotomy incision was made. Some subperiosteal dissection was carried out medially. The fat pad resected from beneath the patellar tendon. The lateral patellofemoral ligament was released. The patella was everted and knee was flexed. The osteophytes were taken off the distal femur. The ACL and PCL were then released from distal femur and the tibia subluxated anteriorly. External tibial alignment jig was then placed in the anterior face of the tibia and adjusted 12 mm medially. Proximal tibial cut was made to remove about 2-3 mm of bone from the medial side. Some osteophytes were taken off medial and posteromedially. Tibia was sized to a size 71. Attention was then drawn to the femur. The distal femur was entered with a sharp drill bit. Intramedullary canal was suctioned. A right 5-degree valgus cutting guide was placed. Distal femoral cutting block was pinned in place. Distal femoral cut was made to take an additional 3 mm of bone off the distal femur. The femur was then sized to a size 67.5. We did downsize this slightly. The AP cutting block was pinned parallel to the epicondylar axis, which was 3 degrees of external rotation. The anterior cut, anterior chamfer cut, posterior cut, posterior chamfer cuts were made. Box cutting guide was placed and adjusted slightly lateral and the box cut was made. The knee was flexed. The remnants of the medial and lateral menisci were excised. The osteophytes were taken off the posterior aspect of the femur. Trial femoral component was placed. The tibial tray was pinned in maximum external rotation and drill and stem punch were used to create defect in proximal tibia for the tibial tray. The knee was then trialed and the 10 mm insert fit most appropriately. Attention was then drawn to the patella. The patella was cleaned of all soft tissues. Patella thickness measured 22 mm in thickness, it was cut down to 13. It was sized to a size 31 patella. Lug holes were drilled for 31 patella. The lateral osteophyte was removed. Patella button was placed. Knee was taken through range of motion, patella tracked nicely with no thumbs test. Attention was then drawn toward placement of permanent components. All trial components were removed. Bone plug was placed in the distal femur to limit blood loss. A double batch of Palacos G cement was mixed. A Biomet Vanguard size 67.5 right posterior stabilized femoral component, size 71 tibial tray, 10 mm posterior stabilized polyethylene insert, and a 31 x 8 all poly patella then cemented in place. Knee was brought out into full extension until cement hardened. A final cement check was then performed. Pericapsular tissues were injected with a total 100 mL of a combination of 20 mL of Exparel, 30 mL of normal saline, 50 mL of 0.25% Marcaine with epinephrine. The patient did receive 1 gram of tranexamic acid. The tourniquet was then let down for final tourniquet time of 58 minutes. Hemostasis was assured using electrocautery. Extensor mechanism was then closed with combination of #1 PDS suture and #1 Vicryl suture in [id number] fashion. Extensor mechanism was checked and found to be intact. Subcutaneous tissue was then closed with #2 Dexon suture in inverted fashion. Skin was closed with skin kaitlin. Leg was then cleaned, dried and a sterile dressing of Xeroform, 4 x 4, sterile cast padding and Naman bandage were applied. The patient then transferred to the recovery room in stable condition. The patient tolerated the procedure well with no complications. All needle and sponge counts were correct at the end of the operation. I attest to the content of the Intraoperative Record and any orders documented therein. Any exception s are noted below.
--- NOTE | 2019-06-01 14:03 | XRay Report ---
XR knee RT 2V routine HISTORY: 59 years-old Female Surgical Post Op right knee total joint arthroplasty. COMPARISON: Knee radiographs 04/25/2019 TECHNIQUE: 2 views of the right knee FINDINGS: Right knee total joint arthroplasty and patella resurfacing demonstrates satisfactory alignment. No a cute fracture or retained foreign body. Anterior midline skin kaitlin are noted along with surgical d rainage catheter and expected postsurgical soft tissue swelling with deep tissue air. IMPRESSION: Satisfactory alignment of the right knee total joint arthroplasty. The above report was generated using voice recognition software. It may contain grammatical, syntax o r spelling errors. Electronically signed by: Maicol Grace M.D. 06/01/2019 2:02 PM
[2019-06-01] MEDS ORDERED: MAGNESIUM HYDROXIDE SUSP 30 ML UDC PO PRN (14:12)
[2019-06-01] MEDS ORDERED: ONDANSETRON INJ 2 MG/ML 2 ML VIAL IV PRN (14:12)
[2019-06-01] MEDS ORDERED: ALUMINUM/MAGNESIUM SUSP 30 ML UDC PO PRN (14:12)
[2019-06-01] MEDS ORDERED: HYDROmorphone INJ 0.5 MG/0.5 ML SYR IV PRN (14:12)
[2019-06-01] MEDS ORDERED: METOCLOPRAMIDE HCL INJ 5 MG/ML 2 ML VIAL IV PRN (14:12)
[2019-06-01] MEDS ORDERED: BISACODYL 10 MG SUPP PR PRN (14:12)
[2019-06-01] MEDS ORDERED: NALOXONE HCL 0.4 MG/1 ML VIAL/CARP IV PRN (14:12)
[2019-06-01] MEDS: CHECK SCOPOLAMINE PATCH PLACEMENT SCH ×3 (14:17→15:47)
--- NOTE | 2019-06-01 14:47 | Anesthesiology Progress Note ---
Date of Service June 01, 2019 Anesthesia Post Procedure Vital Signs Vital Signs: Temp Pulse Pulse Resp BP Pulse Ox 06/01/19 14:20 83 16 123/71 98 06/01/19 13:50 36.8 C 84 16 131/72 100 06/01/19 13:30 83 13 113/72 92 06/01/19 13:20 36.9 C 87 13 144/74 H 94 06/01/19 13:10 91 H 12 126/81 93 06/01/19 13:04 36.9 C 96 H 16 125/73 93 06/01/19 08:40 37.1 C 71 18 149/69 H 93 Transfer of Care Handoff Completed per policy Notes Mental Status: alert / awake / arousable Patient Amnestic to Procedure: Yes Nausea / Vomiting: adequately controlled Pain: adequately controlled Airway Patency, RR, SpO2: stable & adequate BP & HR: stable & adequate Hydration State: stable & adequate Neuraxial Anesthesia: was administered and sensory block is resolving Anesthetic Complications: no major complications apparent and Pt Satisfied with anesthetic care
[2019-06-01] MEDS: ACETAMINOPHEN 500 MG TAB PO SCH (15:44)
[2019-06-01] MEDS: KETOROLAC 30 MG/ML VIAL IV SCH ×2 (15:47→21:14)
--- NOTE | 2019-06-01 18:02 | Progress Note ---
DATE: 06/01/2019 SUBJECTIVE: A 59-year-old female postop from a right knee replacement. She is doing pretty well. Just a little bit of thigh soreness. No chest pain or shortness of breath. Not feeling dizzy or lightheaded. OBJECTIVE: VITAL SIGNS: Temperature 36.7. Vital signs stable. GENERAL: Shows a pleasant, middle-aged female. She is sitting up in bed and talking to her sister. She appears in a good mood and in good spirits. LUNGS: Clear to auscultation. HEART: Regular rate and rhythm. ABDOMEN: Soft, nontender, nondistended. EXTREMITIES: Grossly neurovascularly intact except as follows: Examination of the right lower extremity reveals the leg to be well aligned. She can dorsiflex and plantarflex her foot appropriately. Dressing is clean, dry and intact. Good distal pulse. X-RAYS: X-ray of the right knee from recovery room reviewed. It shows right cemented posterior stabilized total knee arthroplasties. Slightly rotated film. Components looked to be in acceptable position. No signs of problems. ASSESSMENT: A 59-year-old female postop from a right knee replacement, doing reasonably well. She is neurologically intact. PLAN: 1. DVT prophylaxis including thigh-high TEDs, SCDs, and aspirin twice a day. 2. PT/OT. Weight bear as tolerated. Right total knee protocol. 3. Pain control, doing pretty well with current pain regimen. 4. IV antibiotics x24 hours. 5. Disposition: Plan to discharge to home with some home health once adequately recovered and medically stable.
[2019-06-01] MEDS: FERROUS GLUCONATE 324 MG TAB PO SCH (18:10)
[2019-06-01] MEDS: ASCORBIC ACID 500 MG TAB PO SCH (18:10)
[2019-06-01] MEDS ORDERED: TRANEXAMIC ACID 1,000 MG in 0.9 % SODIUM CHLORIDE 100 ML IV SCH (19:00)
[2019-06-01] MEDS: CEFAZOLIN 2000MG 2,000 MG/15 ML SYR IV SCH (19:50)
[2019-06-01] MEDS: TAPENTADOL HCL ER 50 MG TABCR PO SCH (21:12)
[2019-06-01] MEDS: lamoTRIgine 100 MG TAB PO SCH (21:12)
[2019-06-01] MEDS: ASPIRIN 81 MG ECTAB PO SCH (21:12)
[2019-06-01] MEDS: clonazePAM 1 MG TAB PO SCH (21:12)
[2019-06-01] MEDS: DOCUSATE SODIUM 100 MG CAP PO SCH (21:12)
[2019-06-01] MEDS: CETIRIZINE HCL 10 MG TABLET PO SCH (21:13)
[2019-06-01] MEDS: SENNA 8.6 MG TAB PO SCH (21:13)
[2019-06-01] MEDS: SODIUM CHLORIDE 0.9% 1000ML 1,000 ML IV SCH ×2 (21:55→23:28)
[2019-06-02] MEDS: CHECK SCOPOLAMINE PATCH PLACEMENT SCH (00:14)
[2019-06-02] MEDS: ACETAMINOPHEN 500 MG TAB PO SCH ×4 (00:14→23:32)
[2019-06-02] MEDS: CEFAZOLIN 2000MG 2,000 MG/15 ML SYR IV SCH (03:52)
[2019-06-02] MEDS: KETOROLAC 30 MG/ML VIAL IV SCH ×4 (03:53→21:05)
[2019-06-02] MEDS ORDERED: COUGH DROP (SUGAR FREE) LOZ 24 LOZ/1 BOX BUCCAL ONE (03:59)
[2019-06-02 06:04] LABS: Hematocrit (blood only) 35.9 % (37-47); Hemoglobin 12.2 g/dL (12.0-16.0); Mean Corpuscular Volume 90.2 fL (80-100); Mean Platelet Volume 9.6 fL (7.4-10.4); Platelet Count 205 K/uL (130-400); RDW Coefficient of Variation 13.2 % (11.5-14.5); RDW Standard Deviation 42.8 fL (36.4-46.3); Red Blood Count 3.98 M/uL (4.2-5.4)
[2019-06-02 06:34] LABS: BUN Creatinine Ratio 12.6 (10-20); Calcium 8.3 mg/dl (8.5-10.1); Creatinine Clr Calc Pharmacy 83.9 ml/min; Est GFR (African American) 68.3; Est GFR (Non-African American) 58.9; Potassium 4.4 mmol/L (3.5-5.1)
[2019-06-02] MEDS: TAPENTADOL HCL ER 50 MG TABCR PO SCH ×2 (08:43→21:04)
[2019-06-02] MEDS: DOCUSATE SODIUM 100 MG CAP PO SCH ×2 (08:44→21:04)
[2019-06-02] MEDS: CITALOPRAM 40 MG TAB PO SCH (08:44)
[2019-06-02] MEDS: FERROUS GLUCONATE 324 MG TAB PO SCH ×2 (08:44→18:34)
[2019-06-02] MEDS: ASCORBIC ACID 500 MG TAB PO SCH ×2 (08:44→18:34)
[2019-06-02] MEDS: ASPIRIN 81 MG ECTAB PO SCH ×2 (08:44→21:04)
[2019-06-02] MEDS: MULTIVITAMIN TAB PO SCH (08:45)
[2019-06-02] MEDS: FLUVOXAMINE MALEATE 50 MG TAB PO SCH (08:45)
[2019-06-02] MEDS ORDERED: MULTIVITAMIN TAB PO SCH (09:00)
--- NOTE | 2019-06-02 09:10 | Progress Note ---
DATE: 06/02/2019 SUBJECTIVE: A 59-year-old female postop day 1 from right knee replacement. She is doing pretty well. Pain is controlled. Had a pretty good night. No chest pain or shortness of breath. Not feeling dizzy or lightheaded. OBJECTIVE: VITAL SIGNS: Temperature 36.9. Vital signs stable. GENERAL: Shows a pleasant, middle-aged female. She is lying in bed, doing heel prop, looks pretty comfortable. EXTREMITIES: Examination of the right leg reveals the dressing to be in place. It has been reinforced slightly. There is no obvious bloody drainage. She can dorsiflex and plantarflex her foot appropriately. She got a good straight leg raise. LABORATORY DATA: Hemoglobin is 12.2. Hematocrit 35.9. Electrolytes are stable. ASSESSMENT: A 59-year-old white female postop day 1 from right knee replacement, doing pretty well. Pain is controlled. PLAN: 1. DVT prophylaxis including thigh-high TEDs, SCDs and aspirin twice a day. 2. PT/OT. Weight bear as tolerated. Right total knee protocol. 3. Pain control. Doing well with current pain regimen. 4. Disposition. She is hoping to be discharged to home with some home health once adequately recovered. We will see how therapy goes today and tomorrow.
[2019-06-02] MEDS: OXYCODONE HCL IR 5 MG TAB (IMMEDIATE RELEASE) PO PRN (14:42)
[2019-06-02] MEDS: clonazePAM 1 MG TAB PO SCH (21:04)
[2019-06-02] MEDS: lamoTRIgine 100 MG TAB PO SCH (21:04)
[2019-06-02] MEDS: CETIRIZINE HCL 10 MG TABLET PO SCH (21:04)
[2019-06-02] MEDS: SENNA 8.6 MG TAB PO SCH (21:04)
[2019-06-03] MEDS: KETOROLAC 30 MG/ML VIAL IV SCH (05:12)
[2019-06-03] MEDS: OXYCODONE HCL IR 5 MG TAB (IMMEDIATE RELEASE) PO PRN (07:15)
[2019-06-03] MEDS: ASPIRIN 81 MG ECTAB PO SCH (07:56)
[2019-06-03] MEDS: ASCORBIC ACID 500 MG TAB PO SCH (07:57)
[2019-06-03] MEDS: TAPENTADOL HCL ER 50 MG TABCR PO SCH (07:57)
[2019-06-03] MEDS: CITALOPRAM 40 MG TAB PO SCH (07:57)
[2019-06-03] MEDS: DOCUSATE SODIUM 100 MG CAP PO SCH (07:57)
[2019-06-03] MEDS: FERROUS GLUCONATE 324 MG TAB PO SCH (07:58)
[2019-06-03] MEDS: ACETAMINOPHEN 500 MG TAB PO SCH (07:58)
[2019-06-03] MEDS: FLUVOXAMINE MALEATE 50 MG TAB PO SCH (07:58)
[2019-06-03] MEDS: MULTIVITAMIN TAB PO SCH (07:58)
--- NOTE | 2019-06-03 09:01 | Progress Note ---
DATE: 06/03/2019 SUBJECTIVE: A 59-year-old white female postop day #2 from right knee replacement. She is doing well. Pain is controlled. No chest pain or shortness of breath. Not feeling dizzy or lightheaded. OBJECTIVE: VITAL SIGNS: Temperature 36.8. Vital signs stable. GENERAL: Physical examination shows a pleasant, middle-aged female. She is sitting up in bed, looks quite comfortable. EXTREMITIES: Examination of the right leg reveals incision to be clean, dry and intact. Moderate swelling. She has got some bruising laterally. Calf is soft and supple. She is neurologically intact. ASSESSMENT: A 59-year-old white female postop day #2 from right knee replacement, doing pretty well. Pain is controlled. PLAN: 1. DVT prophylaxis including thigh-high TEDs, SCDs and aspirin twice a day. 2. PT/OT. Weight bear as tolerated. Right total knee protocol. 3. Pain control, doing well with current pain regimen. 4. Disposition: Plan to discharge to home with some home health later today.
--- NOTE | 2019-06-08 08:19 | Discharge Summary ---
ADMITTING PHYSICIAN AND SURGEON: Macho Brar MD ADMITTING DIAGNOSIS: Right knee degenerative joint disease. SURGERY PERFORMED: Right total knee arthroplasty. SECONDARY DIAGNOSES: Includes elevated cholesterol, anxiety, depression, bipolar disorder, osteoarthritis, obesity. CONSULTATIONS: None obtained. HISTORY AND PHYSICAL EXAMINATION: Well documented in the patient's chart. HOSPITAL COURSE: The patient was admitted on 06/01/2019 and underwent total knee arthroplasty, tolerated the procedure well. There were no complications. She was transferred to the PACU postoperatively and later to the orthopedic floor for further care. She was given Ancef for antibiotic prophylaxis, KRISTEN stockings, SCDs and aspirin for DVT prophylaxis. Hemoglobin, hematocrit, and vital signs were monitored during her hospital stay and remained stable. She did not require any blood transfusions. There were no complications. By postoperative day 2, she was tolerating a regular diet. Pain was controlled with oral pain medicine. She was participating in physical therapy. On postop day 2, she was discharged home, set up with home health care. She was given printed discharge instructions as well as new prescriptions for Extra Strength Tylenol, aspirin, and oxycodone. Continue her home medicines. Continue physical therapy. Weightbearing as tolerated, KRISTEN stockings. Follow up in approximately 2 weeks postoperatively or sooner if there are any problems or concerns.
== END 2019-06-03 10:48 | disposition home health service (06) | DRG 470 ==
LOC: ASU 07:54 → 3E 13:03
DX: Z68.42 Body mass index [BMI] 45.0-49.9, adult; E78.00 Pure hypercholesterolemia, unspecified; Z96.642 Presence of left artificial hip joint; F31.9 Bipolar disorder, unspecified; E66.9 Obesity, unspecified; Z96.652 Presence of left artificial knee joint; M17.11 Unilateral primary osteoarthritis, right knee

== ENCOUNTER 2023-08-31 05:06 | Observation (INO) ==
--- NOTE | 2023-08-01 09:19 | PAT Medication Instructions ---
Medication Instructions Date of Service August 01, 2023 Home Medications amoxicillin 500 mg capsule 2,000 mg PO DIRECTED PRN PRE DENTAL cetirizine 10 mg tablet (Zyrtec) 10 mg PO HS citalopram 40 mg tablet (Celexa) 20 mg PO BID clonazepam 1 mg tablet 1 mg PO UD PRN Anxiety multivitamin 1 tab PO QAM fluvoxamine 100 mg tablet 50 - 100 mg PO BID fluticasone 250 mcg-salmeterol 50 mcg/dose blistr powdr for inhalation (Advair Diskus) 1 inh inhalation BID lamotrigine 100 mg tablet 50 mg PO QAM Continue as directed amoxicillin 500 mg capsule 2,000 mg PO DIRECTED PRN PRE DENTAL (if needed) DO NOT take the morning of surgery multivitamin 1 tab PO QAM Take morning of surgery With a small sip of water, OTHERWISE NOTHING TO EAT OR DRINK AFTER MIDNIGHT: citalopram 40 mg tablet (Celexa) 20 mg PO BID clonazepam 1 mg tablet 1 mg PO UD PRN Anxiety (if needed) fluvoxamine 100 mg tablet 50 - 100 mg PO BID fluticasone 250 mcg-salmeterol 50 mcg/dose blistr powdr for inhalation (Advair Diskus) 1 inh inhalation BID lamotrigine 100 mg tablet 50 mg PO QAM Take evening before surgery cetirizine 10 mg tablet (Zyrtec) 10 mg PO HS citalopram 40 mg tablet (Celexa) 20 mg PO BID clonazepam 1 mg tablet 1 mg PO UD PRN Anxiety (if needed) fluvoxamine 100 mg tablet 50 - 100 mg PO BID fluticasone 250 mcg-salmeterol 50 mcg/dose blistr powdr for inhalation (Advair Diskus) 1 inh inhalation BID Other Notes If you have any questions please call us at [phone] or [phone] or [phone] or [phone]
--- NOTE | 2023-08-08 09:48 | Anesthesiology Consultation ---
Date of Service August 08, 2023 Assessment & Plan (1) Encounter for pre-operative examination: - awaiting upcoming PCP clearance ACACIA Wells test negative: patient advised to contact PAT if cough does not resolve prior to surgery. - Outpatient joint assessment: Patient is currently scheduled for inpatient pathway. If re-evaluated and patient/surgeon requests outpatient pathway, patient is not recommended candidate for outpatient joint program from anesthesia standpoint. Chart Review Chart Review: Pending: Refer to Additional Notes / Consult section and Patient seen in Pre Admission Testing Teaching & Discussion Pre-Anesthesia Teaching/Discussion Notes: Instructed NPO after midnight before surgery, except medications with 15 cc of water. Medication instructions provided according to the PAT guidelines. History Surgery Operation Date: 08/31/23 10:55 Proposed Procedures p Right Total Hip Arthroplasty - Gage Krishnamurthy MD Height/Weight Height: 5 ft 7 in Weight: 135.9 kg Allergies Allergy/AdvReac Type Severity Reaction Status Date / Time cat dander Allergy Verified 07/27/23 16:34 No Known Drug Allergies Allergy Verified 07/27/23 16:34 Medications Home Medications Medication Instructions Recorded Confirmed Last Taken amoxicillin 500 mg capsule 2,000 mg PO DIRECTED PRN PRE 05/03/19 07/27/23 05/11/19 08:00 DENTAL cetirizine 10 mg tablet (Zyrtec) 10 mg PO HS 05/03/19 07/27/23 01/18/22 citalopram 40 mg tablet (Celexa) 20 mg PO BID 05/03/19 07/27/23 01/19/22 08:00 clonazepam 1 mg tablet 1 mg PO UD PRN Anxiety 05/03/19 07/27/23 01/14/22 multivitamin 1 tab PO QAM 05/03/19 07/27/23 01/18/22 fluvoxamine 100 mg tablet 50 - 100 mg PO BID 01/14/22 07/27/23 01/19/22 08:00 fluticasone 250 mcg-salmeterol 50 1 inh inhalation BID 07/27/23 07/27/23 Unknown mcg/dose blistr powdr for inhalation (Advair Diskus) lamotrigine 100 mg tablet 50 mg PO QAM 07/27/23 07/27/23 Unknown Past Medical History Medical History GERD (gastroesophageal reflux disease) infrequent Asthma no rescue inh. Anxiety Morbid obesity Depression Bipolar disorder Bipolar II disorder Patient denies h/o stroke, seizures, heart attack, heart failure, DM, HTN, blood clots/DVTs or blood transfusions. Exercise / Class Metabolic Activity III < 4 Walking/Shop/Light housework (denies chest discomfort or shortness of breath with usual activities, lives in one story home) Past Family History Family History Uncle Family history of diabetes mellitus Other Asthma Cancer Hypertension No family history of adverse response to anesthesia No family history of bleeding disorder Past Surgical History Surgical History History of tooth extraction History of left hip replacement Status post right knee replacement Right TKA (06/01/19): SAB at L4-5 (x1 attempt) + PNB at [facility] Hx of tonsillectomy History of total left knee replacement (TKR) Hx of total hysterectomy Past Anesthesia History No Hx of Anesthesia Complications and No Family Hx of Anesthesia Complications History of PONV No Hx of PONV and Hx of Motion Sickness (on a boat) Social History Smoking Status: Never smoker Do You Dip or Chew Tobacco: No Hx Alcohol Use: Yes Alcohol type: wine alcohol intake frequency: a few times a month Hx Substance Use: No substance use type: does not use Review of Systems Onset of cough productive of clear sputum, sinus congestion and drainage 5 days ago, reports sinus congestion and drainage have resolved-cough persists; denies chest discomfort, shortness of breath, fever, chills, pharyngitis, nausea or vomiting. Patient denies chest pain, shortness of breath, dyspnea on exertion, snoring, witnessed apneas, wheezing, or palpitations. Physical Exam Vital Signs Vitals BP 136/83 P 81 TEMP 98.5 SP02 96% on RA RESP 17 Physical Patient resting comfortably in chair in no acute distress, alert and oriented, responding appropriately throughout visit Full cervical extension range of motion without pain TMD 3.5 finger breadths Mallampati Score 2 Dentition: several implants-lower back left and several crowns, denies chipped or loose teeth, caps, or bridges Lungs: normal respiratory effort. Good air movement, clear throughout to auscultation, no adventitious breath sounds Cardiac: regular rate and rhythm, no murmurs noted Carotid arteries: negative bruit bilat Lab Results Anesthesia Preop Results Results Anesthesia Widget: WBC 7.54 K/ul (4.8-10.8) 08/08/23 Hgb 13.9 g/dl (12.0-16.0) 08/08/23 Hct 41.8 % (37.0-47.0) 08/08/23 Plt 286 K/uL (130-400) 08/08/23 Na 144 mmol/L (136-145) 08/08/23 K 4.2 mmol/L (3.5-5.1) 08/08/23 Cl 108 mmol/L (98-107) H 08/08/23 CO2 30 mmol/L (21-32) 08/08/23 BUN 22 mg/dl (6-23) 08/08/23 Creat 0.85 mg/dl (0.6-1.2) 08/08/23 Glucose Level 131 mg/dl (70-99(Fasting)) H 08/08/23 PT 10.8 Seconds (9.0-12.0) 08/08/23 PTT 27.7 Seconds (21.0-31.0) 08/08/23 INR 1.0 (0.9-1.1) 08/08/23 Urine Color Dark Yellow 08/08/23 Urine Appearance Cloudy (Clear) A 08/08/23 Urine pH 5.0 (4.5-7.5) 08/08/23 Urine Specific Atkins 1.035 (1.000-1.030) H 08/08/23 Urine Protein Negative (Negative) 08/08/23 Urine Glucose (UA) Negative (Negative) 08/08/23 Urine Ketones Trace (Negative) H 08/08/23 Urine Blood Negative (Negative) 08/08/23 Urine Nitrite Negative (Negative) 08/08/23 Urine Bilirubin Negative (Negative) 08/08/23 Urine Urobilinogen Negative (Negative) 08/08/23 Urine Leukocyte Esterase Trace (Negative) H 08/08/23 Urine WBC (Auto) >30 /hpf (0-5) H 08/08/23 Urine RBC (Auto) 0-4 /hpf (0-4) 08/08/23 Urine Hyaline Casts (Auto) 1-5 /lpf (0-5) 08/08/23 Urine Epithelial Cells (Auto) >30 /lpf (0-5) H 08/08/23 Urine Bacteria (Auto) Negative (Negative) 08/08/23 Blood Type O Positive 08/08/23 Antibody Screen NEGATIVE 08/08/23 Testing Electrocardiogram Date: 08/08/23 NSR, rate 76 bpm Chest X-Ray Date: 08/08/23 No acute cardiopulmonary findings
[2023-08-31] MEDS ORDERED: LR 500ML BOLUS, THEN 15ML/HR IV SCH (06:00)
[2023-08-31] MEDS ORDERED: LR 60ML/HR IV SCH (06:00)
[2023-08-31] MEDS ORDERED: ROPIVACAINE 0.5% HCL/PF 150 MG, BUPIVACAINE 0.75% MPF 20 ML, EPINEPHrine 0.15 MG, Ketor... INFIL SCH (06:00)
[2023-08-31] MEDS ORDERED: TRANEXAMIC ACID 1,000 MG **IV Pre-op IV SCH (06:00)
[2023-08-31] MEDS ORDERED: BUPIVACAINE 0.5 % 5 MG/1 ML PF 10ML VIAL ONE (06:21)
--- NOTE | 2023-08-31 06:26 | History & Physical Bridge Note ---
Date of Service August 31, 2023 History & Physical Bridge Note I have examined the patient, reviewed the History & Physical and in the interval since the performance of the History & Physical I have noted the following changes of clinical significance:consent obtained/site verified. no changes noted
[2023-08-31] MEDS ORDERED: ROPIVACAINE 0.5% 5 MG/ML 30 ML VIAL ONE (06:28)
[2023-08-31] MEDS ORDERED: ORTHO JOINT ANESTHETIC ONE (06:32)
[2023-08-31] MEDS ORDERED: ATROPINE SULFATE 0.1 MG/ML 10ML SYR IV PRN (06:37)
[2023-08-31] MEDS ORDERED: HYDROmorphone INJ 2 MG/ML SYR/VIAL IV PRN (06:37)
[2023-08-31] MEDS ORDERED: ONDANSETRON INJ 2 MG/ML 2 ML VIAL IV PRN ×2 (06:37→10:56)
[2023-08-31] MEDS ORDERED: MIDAZOLAM HCL 1 MG/ML 2ML VIAL ONE ×4 (06:40→07:58)
[2023-08-31] MEDS ORDERED: fentaNYL citrate PF 100 MCG/2 ML VIAL ONE ×2 (06:42→08:21)
[2023-08-31] MEDS ORDERED: KETAMINE HCL 10MG/ML SYR ONE (06:50)
[2023-08-31] MEDS ORDERED: PROPOFOL IV EMULSION 10 MG/ML 20 ML VIAL IV ONE ×3 (07:04→08:20)
[2023-08-31] MEDS ORDERED: PHENYLEPHRINE HCL 10 MG/ML VIAL ONE (07:15)
[2023-08-31] MEDS ORDERED: GLYCOPYRROLATE 0.2 MG/ML VIAL ONE (07:18)
[2023-08-31] MEDS ORDERED: ONDANSETRON INJ 2 MG/ML 2 ML VIAL ONE (07:18)
[2023-08-31] MEDS ORDERED: VANCOMYCIN HCL 1000MG/20ML VIAL ONE (08:21)
[2023-08-31] MEDS ORDERED: ESMOLOL HCL INJ 10 MG/ML 10ML VIAL IV ONE (08:50)
--- NOTE | 2023-08-31 09:04 | Post Operative Brief Note ---
Immediate Post Op Note v1 Date of Surgery August 31, 2023 Pre & Post Diagnosis Osteoarthritis right hip preop diagnosis Postop diagnosis osteoarthritis right hip Operation Date: 08/31/23 07:00 <No data on this case meets the specified criteria> I identified the patient and participated in the time-out.: Yes Procedure Right total hip arthroplasty noncemented Operation Date: 08/31/23 07:00 <No data on this case meets the specified criteria> Surgeon Gage Krishnamurthy MD Machine Rug Cleaner MARQUES/Cait Estimated Blood Loss 200 Findings Consistent with Post-Op Diagnosis Severe disease Fluids See anesthesia report
--- NOTE | 2023-08-31 09:08 | Operative Report ---
Post Operative Report Pre & Post Diagnosis Osteoarthritis right hip preop diagnosis Postop diagnosis same osteoarthritis right hip Operation Date: 08/31/23 07:00 <No data on this case meets the specified criteria> I identified the patient and participated in the time-out.: Yes Procedure Operation Date: 08/31/23 07:00 <No data on this case meets the specified criteria> Noncemented right total replacement Surgeon Gage Krishnamurthy MD Spinning Operator MARQUES/Cait Estimated Blood Loss 200 Findings Consistent with Post-Op Diagnosis Severe disease Fluids See anesthesia report Specimens Bone pathology Drains None Complications None Indications Failed conservative management for years. Description of Procedure After the patient was appropriate notified site verified consent verified antibiotics from his been given the right lower extremity was prepped and draped use routine fashion with patient left lateral decubitus position everything was appropriately padded in position. Posterior approach the hip was made size based on the high BMI of the patient. This obviously increases her risk and she is well aware of that. This was discussed in detail. Full-thickness flaps were raised. A Charnley was required given the superficial layer this was then allowed excellent support to the IT band and gluteus patrcik fascia was then incised under direct vision. Blunt dissection was then carried posteriorly anteriorly and the sciatic nerve was identified visualized did not dissected. Short external rotators were released off the femur the capsule was then teed the hip was then dislocated. Femoral neck was resected. Was a tedious dissection based on her size. Serial reaming was carried out up to a size 52 and a 52 cup impacted in appropriate anteversion inclination and secured with a 6.5x25 screw with excellent purchase. Trial liner was seated. The hip was then flexed internally rotated the depth of the wound required femoral retraction care taken to protect the sciatic nerve at all times. The femur was then broached up to a size 4 trial reduction with a +5 neck gave us excellent stability and leg lengths that were present preop. She was slightly long on that side preop. The implants were then removed wound irrigated with Betadine Pulsavac and then the permanent whole limb interceded the permanent liner seated permanent stem and head seated excellent reduction was carried out and the hip was stable in all planes leg lengths were as noted slightly long which was present preop. Vancomycin powder was then placed all around the deep area of the hip and then closed the short external rotators and capsule with #2 Vicryl the IT band was closed with #2 Vicryl within the gluteus patrick fascia with #2 Vicryl as well. Additional vancomycin powder was placed and then the deep fat was closed with #2 Vicryl and the superficial layer was got some vancomycin powder and the rest of the closed with 2-0 Vicryl standstill clips and retention sutures with #0 Prolene. Wounds and appropriate dressed the patient transferred recovery in satisfactory Tolerated procedure well. Bone pathology pending DVT prophylaxis per protocol EBL 200 cc crystalloid per anesthesia Summary of implants acetabular and femoral components were Kalion 52 acetabular shell sector cup 26 approximate 25 from 6.5 cancellous screw dome cover 52x36 whole limb later neutral liner 52x36 for standard stem Actis dual fix. The ceramic head 36+5. Patient transferred care in satisfactory send tolerated seizure well. I attest to the content of the Intraoperative Record and any orders documented therein. Any exceptions are noted below.
--- NOTE | 2023-08-31 09:11 | Discharge Summary ---
Date of Service September 01, 2023 Admission HPI Per Admitting Provider Admitted for severe right hip pain underwent right total replacement Principal Diagnosis Severe osteoarthritis right hip Discharge Data Allergies Allergy/AdvReac Type Severity Reaction Status Date / Time cat dander Allergy Verified 07/27/23 16:34 No Known Drug Allergies Allergy Verified 07/27/23 16:34 Vaccinations None Consultations None Procedures Performed Operation Date: 08/31/23 07:00 <No data on this case meets the specified criteria> Noncemented right total replacement Ordered Studies Bone pathology Hospital Course (1) Status post right hip replacement: Total Time Total Time Spent Total Time Spent (In Minutes): 5 Discharge Plan Discharge Items Patient Disposition: Home - Home Health Services Reason For Visit: POST SURGICAL CARE Discharge Diagnosis: Right hip s/p total hip replacement Condition on Discharge: Good Activity: Per Instructions section Lifting: Wait until after follow-up appointment Bathing: Keep incision dry Sexual Activity: Wait until after follow-up appointment Exercise/Sports: Wait until after follow-up appointment Driving/Machine Use: No driving until cleared by Dr. Krishnamurthy Weightbearing: Full weightbearing Non-emergency contact: Surgeon Call non-emergency contact if: you have any medication questions, your pain is not controlled, your temperature is above 101.5, your wound has increased redness, your wound has increased drainage and your wound pain has increased Follow-up/Referrals: Shawn Laura [Primary Care Provider] - Diet: Regular Addtl Attending Provider Instructions: New Medicine: * You will likely be taking one or more of these medicines: 1. Percocet - Take, as directed, when you need it, every four to six hours to control your pain. 2. Iron Sulfate - Take three times each day for the month after surgery to help you replace the blood lost during surgery. 3. Eliquis - Thins your blood to lessen the chance of forming a blood clot. * The most common side effects of pain medicine and iron are nausea and constipation. If nausea or constipation is too much of a problem or if you have any questions about your new medicines or doses, call [facility] at . We will try to help you manage these issues. "VERY IMPORTANT TO READ AND REVIEW" Blood Clots and Blood Thinning Medicine: * You are given Eliquis during the immediate post-operative period to lessen the risk of blood clots forming in your legs and/or lungs. It is usually given for six weeks after surgery. Pain: * The immediate post-operative period after hip replacement surgery is often quite painful. * You are given a prescription for pain medicine. You should take it, as directed, when you need it, especially before physical therapy and before going to bed. Pain that interferes with sleep is very common and can last several months. * You will likely need pain medicine for the first two to four weeks. It will not stop all of the pain. The pain will lessen and as you feel better, you may change to milder pain medicine such as Tylenol. * The most common side effects of pain medicine are nausea and constipation, so don't take more than you need. Physical Therapy: * Follow the "Hip Precautions Instructions." * In some cases, the social welfare research worker at the hospital will arrange to have a therapist come to your house for the first couple of weeks to help you learn these skills. * You need to practice on your own or with the help of a family member as needed. * When you learn these skills, most of the therapy can be done on your own. Home Exercise: * You were shown a series of exercises in the hospital. Do these exercises three to four times each day including the exercises you were shown in physical therapy. Walking: * Get up and walk several times each day. For the first four weeks, try not to stand or walk for more than one hour at a time. If you do stand or walk for more than one hour, you will not hurt anything, but your leg will likely swell. * As you feel comfortable, you may change from the walker or crutches to a cane and then to independent walking. SELF CARE INSTRUCTIONS AFTER TOTAL HIP REPLACEMENT Until the incision and soft tissues around your hip have healed, there is a possibility that the hip prosthesis could dislocate. A. Observe the following precautions to prevent dislocation: 1. Don't bend your hip greater than 90 degrees. 2. Avoid crossing your legs or ankles while standing or lying. 3. Sit with your feet placed 6 inches apart. 4. When sitting, keep your knees below your hips. Sit on a firm surface, avoid deep, soft chairs and couches. Use an elevated toilet seat in the bathroom. 5. Don't bend over at the waist. Use a long handled shoehorn and a sock aid to help you put on your shoes and socks. A precision lathe operator can help you pick pulling machine tender objects that are too high or too low to reach. 6. Keep car riding to a minimum for at least one month after surgery. B. Your balance may be shaky for a while. Use crutches or a walker until directed by your doctor. C. Use hand rails when walking on stairs. D. Wear low heeled shoes with non-slip soles. E. Be sure that your floors are free of things that could trip you - throw rugs, electrical cords, small objects. Avoid wet and waxed floors, especially with crutches and canes. F. Try to walk several times a day with rest periods between. G. Continue with all the exercises taught to you in the hospital. Again, make walking a part of your daily routine. VERY IMPORTANT TO READ AND REVIEW A. Take Eliquis (blood thinning medication) as directed by your doctor. B. There are a few signs you need to watch for after you are home. If you notice any of the followin. Increased severe hip pain. Some pain is expected especially when you exercise. 2. Increased swelling in your leg or knee; pain or swelling of the calf muscle in either lower leg. 3. Any fluid drainage from the incision. 4. Shortness of breath or chest pain. TEDs/Elastic Stockings: * The white elastic stockings help limit swelling and prevent blood clots from forming in your legs. The more you wear them, the more they work. * Wear them for six weeks. Prevention of Infection: * Take antibiotics one hour before any dental cleaning, dental work, urological procedure, gastrointestinal procedure or any invasive surgery in order to prevent your new joint from getting infected. * You may get the antibiotics from the doctor performing the procedure or we will call in a prescription to the pharmacy of your choice. Call the office for a prescription at least 2 days prior to your appointment. Things to Watch For: * Drainage from the incision site that occurs more than one week after your surgery. * Severely increased leg pain or swelling. * Increased redness at the incision site. * Fever above 101 degrees Fahrenheit. * Unusual chest pain or shortness of breath. * Unusual pain or burning with urination. Sleep with the wedge pillow until your follow up visit use your walker when standing/ambulating Follow up with Jean in the office in 1 week for removal of the wound vac Pending Studies at Discharge: Yes Studies:: Bone pathology Stand-Alone Forms: My [facility] [employer], Smoking Cessation Medications and DC Order Prescriptions: No Action multivitamin Tablet 1 tab PO QAM citalopram [Celexa] 40 mg Tablet 20 mg PO BID cetirizine [Zyrtec] 10 mg Tablet 10 mg PO HS clonazepam 1 mg Tablet 1 mg PO UD PRN (Reason: Anxiety) amoxicillin 500 mg Capsule 2,000 mg PO DIRECTED PRN (Reason: PRE DENTAL) fluticasone propion-salmeterol [Advair Diskus] 250-50 mcg/dose Blister With Device 1 inh INHALATION BID lamotrigine 100 mg Tablet 50 mg PO QAM fluvoxamine 100 mg Tablet 50 - 100 mg PO BID Patient Comments: 50 IN THE MORNING AND 100 AT NIGHT Admission Data Admit Date/Time: 08/31/23 09:24 Attending Provider: Gage Krishnamurthy Admit Provider: Gage Krishnamurthy Primary Care Provider: Shawn Laura Other Providers: [facility],Home Health
--- NOTE | 2023-08-31 09:12 | Orthopedic Progress Note ---
Date of Service August 31, 2023 Assessment & Plan (1) Status post right hip replacement: Plan Continue care pathway for right total replacement noncemented. Admission and Anticipated Discharge Date Admission Date: 23-hour admission. Orthopedic Progress Note Underwent right total replacement. Patient tolerated well. And spinal anesthesia. Denies chest pain shortness breath fever chills nausea vomiting. Vital signs are stable. She has baseline tachycardia. She lost about 200 cc of blood. X-rays pending. Continue care pathway. Family contacted sister.
--- NOTE | 2023-08-31 09:16 | Operative Report ---
Post Operative Report Pre & Post Diagnosis Operation Date: 08/31/23 07:00 Pre-Op Diagnosis: Right Hip Degenerative Joint Disease Post-Op Diagnosis: Right Hip Degenerative Joint Disease I identified the patient and participated in the time-out.: Yes Procedure Operation Date: 08/31/23 07:00 Actual Procedures p Right Total Hip Arthroplasty--Uncemented(Right) - Gage Krishnamurthy MD Surgeon MOOK Krishnamurthy MD Optical Effects Line Up Person MARQUES/Cait VILLEGAS Estimated Blood Loss 200 Findings Consistent with Post-Op Diagnosis see operative report Specimens see operative report Drains none Complications none Disposition Accompanied Patient To Recovery: Yes Indications This 63 year old female presented to the office complaints of persisting right hip pain. She had tried conservative care measures without improvement. She elected to proceed with surgical invention after being educated about potential risks and outcomes. Preoperative imaging was obtained. She has a history of previous left total hip arthroplasty and has done very well with it. She elected to proceed with the same on the right. Description of Procedure The patient was administered a spinal anesthetic and then taken to the operating room where she was given sedation. She was prepped and draped in the usual sterile fashion. Please see Dr. Krishnamurthy's operative report for specifics of the procedure. I was present for the entire case from initial patient positioning through final wound closure. Assistance was provided in tissue retraction, hemostasis, trial implant placement, final implant placement, and final wound closure. The patient was taken to the recovery room in satisfactory condition. I attest to the content of the Intraoperative Record and any orders documented therein. Any exceptions are noted below.
--- NOTE | 2023-08-31 09:23 | Operative Report ---
Post Operative Report Pre & Post Diagnosis Operation Date: 08/31/23 07:00 Pre-Op Diagnosis: Right Hip Degenerative Joint Disease Post-Op Diagnosis: Right Hip Degenerative Joint Disease I identified the patient and participated in the time-out.: Yes Procedure Operation Date: 08/31/23 07:00 Actual Procedures p Right Total Hip Arthroplasty--Uncemented(Right) - Gage Krishnamurthy MD Surgeon Gage Krishnamurthy MD Computer Technical Support Specialist MARQUES/Cait VILLEGAS Estimated Blood Loss 200 Findings Consistent with Post-Op Diagnosis Same as postoperative diagnosis. Specimens The resected parts of the femoral head, neck and acetabulum. Description of Procedure Please see detailed operative note. I attest to the content of the Intraoperative Record and any orders documented therein. Any exceptions are noted below.
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
[2023-08-31] MEDS: ePHEDrine sulfate 50 MG/ML AMP IV PRN ×6 (09:33→09:58)
--- NOTE | 2023-08-31 09:34 | Orthopedic Progress Note ---
Date of Service August 31, 2023 Orthopedic Progress Note Patient seen in recovery room. She has full active motor function femoral sciatic nerve. She denies chest pain shortness of breath fever chills nausea vomiting headache. She does complain of some pain. Wound dressing clean dry and intact. X-rays look good. Assessment overall doing well continue with care pathway. This point in time we will allow weightbearing as tolerated with walker. Postural and discretion precautions have been advised. Family been contacted discussed with her Sister Carine.
[2023-08-31] MEDS: fentaNYL citrate PF 100 MCG/2 ML VIAL IV PRN ×2 (09:56→10:00)
[2023-08-31] MEDS ORDERED: METOPROLOL TARTRATE 1 MG/ML VIAL IV ONE (10:22)
[2023-08-31] MEDS ORDERED: METOPROLOL TARTRATE 1 MG/ML VIAL IV STA (10:23)
--- NOTE | 2023-08-31 10:35 | Anesthesiology Progress Note ---
Date of Service August 31, 2023 Anesthesia Post Procedure Vital Signs Vital Signs: Temp Pulse Pulse Pulse Resp BP BP 08/31/23 10:28 120 H 107/92 08/31/23 10:25 36.0 C L 99 H 19 94/64 L 08/31/23 10:15 112 H 22 107/92 08/31/23 10:05 109 H 22 139/76 08/31/23 09:55 109 H 22 94/65 L 08/31/23 09:45 105 H 22 90/57 L 08/31/23 09:35 102 H 22 91/69 L 08/31/23 09:25 100 H 22 77/65 L 08/31/23 09:15 36.2 C L 111 H 20 95/70 L 08/31/23 05:29 08/31/23 05:29 36.2 C L 93 H 20 157/90 H Pulse Ox O2 Del Method O2 Flow Rate 08/31/23 10:28 08/31/23 10:25 100 Oxymask 5 08/31/23 10:15 99 Oxymask 5 08/31/23 10:05 97 Oxymask 5 08/31/23 09:55 97 Oxymask 5 08/31/23 09:45 99 Oxymask 5 08/31/23 09:35 99 Oxymask 5 08/31/23 09:25 100 Oxymask 5 08/31/23 09:15 100 Oxymask 5 08/31/23 05:29 Room Air 08/31/23 05:29 94 Room Air Pain Intensity Right Hip: Pain Intensity: 7 Transfer of Care Handoff Completed per policy Notes Mental Status: alert / awake / arousable and participated in evaluation Patient Amnestic to Procedure: Yes Nausea / Vomiting: adequately controlled Pain: adequately controlled Airway Patency, RR, SpO2: stable & adequate BP & HR: stable & adequate Hydration State: stable & adequate Anesthetic Complications: no major complications apparent and Pt Satisfied with anesthetic care
[2023-08-31] MEDS ORDERED: clonazePAM 1 MG TAB PO PRN (10:56)
[2023-08-31] MEDS ORDERED: HYDROmorphone INJ 0.5 MG/0.5 ML SYR IV PRN (10:56)
[2023-08-31] MEDS ORDERED: SODIUM CHLORIDE 0.9% 1,000 ML IV SCH (10:56)
[2023-08-31] MEDS ORDERED: VANCOMYCIN CONSULT ACTIVE PRN (10:56)
[2023-08-31] MEDS ORDERED: bisacodyL 10 MG SUPP PR PRN (10:56)
[2023-08-31] MEDS ORDERED: diphenhydrAMINE 50 MG/ML VIAL IV PRN (10:56)
[2023-08-31] MEDS ORDERED: ALUMINUM/MAGNESIUM SUSP 30 ML UDC PO PRN (10:56)
[2023-08-31] MEDS ORDERED: NALOXONE HCL 0.4 MG/1 ML VIAL/CARP IV PRN (10:56)
[2023-08-31] MEDS ORDERED: METOCLOPRAMIDE HCL INJ 5 MG/ML 2 ML VIAL IV PRN (10:56)
[2023-08-31] MEDS ORDERED: MAGNESIUM HYDROXIDE SUSP 30 ML UDC PO PRN (10:56)
[2023-08-31] MEDS: KETOROLAC 30 MG/ML VIAL IV SCH ×2 (11:28→17:36)
[2023-08-31] MEDS ORDERED: VANCOMYCIN HCL 2,000 MG in SODIUM CHLORIDE 0.9% 500 ML IV ONE (11:45)
[2023-08-31] MEDS: FLUTICASONE/VILANTEROL 200/25MCG 14 PUFFS/INHALER INH SCH (12:14)
--- NOTE | 2023-08-31 12:55 | XRay Report ---
XR pelvis 1-2V routine CLINICAL HISTORY: S/P R ARACELI TECHNIQUE: A single frontal view of the pelvis was obtained. Comparison: Comparison is made to right hip radiograph 08/08/2023 FINDINGS: Patient is status post right total hip arthroplasty with expected postsurgical changes including soft tissue swelling, and subcutaneous emphysema. No periarticular lucency or hardware fracture is seen. Left hip arthroplasty is seen. IMPRESSION: Expected postoperative appearance status post placement of total hip arthroplasty. ACT 112: Negative or not required by law. Electronically signed by: Arturo Broderick M.D. 08/31/2023 12:54 PM
[2023-08-31] MEDS: ACETAMINOPHEN 500 MG TAB PO SCH (13:18)
[2023-08-31] MEDS: oxyCODONE HCL IR 5 MG TAB (IMMEDIATE RELEASE) PO PRN ×2 (13:37→18:49)
--- NOTE | 2023-08-31 14:31 | Orthopedic Progress Note ---
Date of Service August 31, 2023 Assessment & Plan Admission and Anticipated Discharge Date Admission Date: August 31, 2023 Orthopedic Progress Note Afternoon rounds is doing well. Denies chest pain shortness of breath fever chills nausea vomiting headache. Vital signs are stable she is afebrile. Neurovascular check femoral sciatic nerve is normal. Wound dressing clean dry and intact. Can do ankle pumps can do straight leg raise. Can do a heel slide. At this point I am discontinue the abduction pillow only use when she is sleeping she needs to get up and sit in a chair and get up walk around. She was encouraged to do this. This was discussed with her nurse Manish. Potential discharge tomorrow after PT OT.
[2023-08-31] MEDS: ceFAZolin 2000MG 2,000 MG/15 ML SYR IV SCH (15:22)
[2023-08-31] MEDS ORDERED: TRANEXAMIC ACID / 0.7% NACL 1,000 MG/100 ML BAG IV SCH (15:30)
[2023-08-31] MEDS: fluvoxaMINE MALEATE 50 MG TAB PO SCH (20:04)
[2023-08-31] MEDS: DOCUSATE SODIUM 100 MG CAP PO SCH (20:04)
[2023-08-31] MEDS: CITALOPRAM 20 MG TAB PO SCH (20:05)
[2023-08-31] MEDS ORDERED: CETIRIZINE HCL 10 MG TABLET PO SCH (21:00)
[2023-08-31] MEDS ORDERED: SENNA 8.6 MG TAB PO SCH (21:00)
[2023-09-01] MEDS: ceFAZolin 2000MG 2,000 MG/15 ML SYR IV SCH (00:06)
[2023-09-01] MEDS: oxyCODONE HCL IR 5 MG TAB (IMMEDIATE RELEASE) PO PRN ×2 (00:06→10:58)
[2023-09-01] MEDS: KETOROLAC 30 MG/ML VIAL IV SCH ×2 (00:06→05:21)
[2023-09-01] MEDS: ACETAMINOPHEN 500 MG TAB PO SCH ×2 (00:06→05:20)
--- NOTE | 2023-09-01 06:33 | Orthopedic Progress Note ---
Date of Service September 01, 2023 Assessment & Plan Admission and Anticipated Discharge Date Admission Date: August 31, 2023 Orthopedic Progress Note Postop day #1 status post right total hip replacement.She denies chest pain shortness of breath fever chills nausea vomiting or headache.She notes that she was sleeping on her left side with a pillow between her knees without any issues. Vital signs are stable she is afebrile.Neurovascular check femoral sciatic nerve is normal. [place] nontender. Wound dressing clean dry and intact. Assessment status post right total replacement. Continue care pathway. Prepare for discharge after PT OT today. Begin anticoagulation today. Discharge on prednisone 20 mg daily for 7 days.Presented to be placed today. Follow-up in 1 week for dressing change. Discharged also on doxycycline 100 mg p.o. twice daily for 10 days.
[2023-09-01 07:36] LABS: Basophils # (auto) 0.01 K/uL (0.00-0.20); Basophils % (auto) 0.1 %; Eosinophils # (auto) 0.04 K/uL (0.00-0.50); Eosinophils % (auto) 0.3 %; Hematocrit (blood only) 27.2 % (37.0-47.0); Hemoglobin 9.4 g/dl (12.0-16.0); Immature Granulocytes # (auto) 0.03 K/uL (0.01-0.20); Immature Granulocytes % (auto) 0.3 %; Lymphocytes # (auto) 1.65 K/uL (1.20-3.40); Lymphocytes % (auto) 14.2 %; Mean Corpuscular Hemoglobin 30.1 pg (25.0-34.0); Mean Corpuscular Hgb Conc 34.6 g/dL (32.0-36.0); Mean Corpuscular Volume 87.2 fL (80.0-100.0); Mean Platelet Volume 9.8 fL (9.4-12.4); Monocytes # (auto) 1.04 K/uL (0.11-0.59); Neutrophils # (auto) 8.84 K/uL (1.40-6.50); Neutrophils % (auto) 76.1 %; Platelet Count 211 K/uL (130-400); RDW Coefficient of Variation 12.6 % (11.5-14.5); Red Blood Count 3.12 M/uL (4.20-5.40); White Blood Count 11.61 K/ul (4.8-10.8)
[2023-09-01 07:49] LABS: BUN Creatinine Ratio 15.3 (10-20); Calcium 8.5 mg/dl (8.6-10.3); Creatinine Clr Calc Pharmacy 71.6 ml/min; Est GFR (African American) 57.6 ml/min; Est GFR (Non-African American) 49.7 ml/min; Potassium 4.5 mmol/L (3.5-5.1)
[2023-09-01] MEDS ORDERED: dexAMETHasone 10 MG in SYRINGE 0 ML IV SCH (08:00)
[2023-09-01] MEDS: fluvoxaMINE MALEATE 50 MG TAB PO SCH (08:15)
[2023-09-01] MEDS: CITALOPRAM 20 MG TAB PO SCH (08:15)
[2023-09-01] MEDS: DOCUSATE SODIUM 100 MG CAP PO SCH (08:15)
[2023-09-01] MEDS: FLUTICASONE/VILANTEROL 200/25MCG 14 PUFFS/INHALER INH SCH (08:16)
[2023-09-01] MEDS ORDERED: MULTIVITAMIN TAB PO SCH (09:00)
[2023-09-01] MEDS ORDERED: lamoTRIgine 25 MG TAB PO SCH (09:00)
[2023-09-01] MEDS ORDERED: APIXABAN 2.5 MG TAB PO SCH (09:00)
--- NOTE | 2023-09-01 09:10 | Orthopedic Progress Note ---
Date of Service September 01, 2023 Assessment & Plan (1) Status post right hip replacement: Plan: The patient was educated regarding today's findings. Conservative care measures were discussed. Her dressing was changed. A Prevena wound VAC was placed. It maintained a good seal. She was educated about how to use it and which problems to watch for. Her prescriptions for prednisone 20 mg, doxycycline 100 mg, Percocet 5/325 mg, and Eliquis 2.5 mg were sent to her pharmacy. Continue using her walker. She was reminded of her total hip precautions. Written discharge instructions were provided. She will be discharged to home today after therapy. [facility] has been arranged. They will likely call today or tomorrow. Follow-up with me in the office next at 11:30 AM for removal of the wound VAC. Call the office with any other concerns. Admission and Anticipated Discharge Date Admission Date: August 31, 2023 Subjective This 63-year-old female seen today in her room. She is 1 day status post right total hip arthroplasty. She states she feels much better this morning than she did yesterday. She had considerable pain yesterday. It is almost resolved. She has already been out of bed and going to the bathroom. She feels ready for physical therapy and then discharged home. She denies any chest pain, shortness of breath, nausea, vomiting, abdominal pain, or significant hip pain. Review of Systems Review of Systems: Unchanged from yesterday. Physical Exam Physical Exam: General: Well-developed, well-nourished, middle-aged female, in no acute distress. Laying in bed. Alert and oriented. Conversive. Seems happy today. Skin: Warm and dry with good turgor. No rashes. Patient has a postsurgical dressing in place on the right hip. Upon removal, there is a moderate amount of drainage on the dressings. She has no current active bleeding. [place] are intact. Retention sutures are intact. Wound edges are well-approximated. Developing ecchymosis. No erythema. Skeletal: The patient has supple motion of her right hip, knee, and ankle. She is able to roll over in bed easily by herself. She is able to do a straight leg raise. Neurologic: Gross sensation is intact across the lower extremities by soft touch. Peripheral pulses are 2+. Results & Data Vital Signs (Past 12 Hours) Vital Signs Temp Pulse Resp BP Pulse Ox O2 Del Method 09/01/23 07:38 36.8 C 89 18 108/62 95 Room Air 09/01/23 03:08 37.1 C 100 H 18 107/61 96 Room Air 09/01/23 01:14 37.2 C 08/31/23 23:35 37.6 C H 105 H 18 107/53 L 95 Room Air Laboratory Results CBC obtained this morning shows a white count of 11.61. H&H of 9.4 and 27.2. Platelet count 211,000. CRP shows sodium 135, potassium 4.5, chloride 100, CO2 30. Anion gap of 5. BUN 18 creatinine 1.18. Glucose 124.
== END 2023-09-01 13:14 | disposition home health service (06) ==
LOC: ASU 05:06 → 3E 05:06